=== PATIENT | male | born 1970 | race Caucasian/White ===

== ENCOUNTER 2016-07-02 13:28 | Outpatient (CLI) | payer MEDICAID | END 2016-07-02 13:29 | disposition home or self-care (01) | DX: E11.65 Type 2 diabetes mellitus with hyperglycemia (principal) ==

== ENCOUNTER 2016-10-07 11:46 | Outpatient (CLI) | payer MEDICAID | END 2016-10-07 11:47 | disposition home or self-care (01) | DX: E11.9 Type 2 diabetes mellitus without complications (principal); E66.9 Obesity, unspecified ==

== ENCOUNTER 2016-10-14 03:36 | Outpatient (CLI) | payer MEDICAID | END 2016-10-14 03:37 | disposition critical access hospital (66) | DX: R07.81 Pleurodynia (principal); R20.0 Anesthesia of skin | CPT/HCPCS: A0425; A0429 ==

== ENCOUNTER 2016-10-14 03:56 | Emergency (ER) | payer MEDICAID ==
[2016-10-14] MEDS ORDERED: ASPIRIN CHEW 81 MG TABLET PO STA (04:10)
== END 2016-10-14 06:23 | disposition home or self-care (01) ==
DX: R07.89 Other chest pain (principal); E11.9 Type 2 diabetes mellitus without complications; Z79.84 Long term (current) use of oral hypoglycemic drugs; I10 Essential (primary) hypertension; E78.00 Pure hypercholesterolemia, unspecified; F17.200 Nicotine dependence, unspecified, uncomplicated

== ENCOUNTER 2017-07-24 19:30 | Outpatient (CLI) | payer MEDICAID | END 2017-07-24 19:31 | disposition critical access hospital (66) | LOC: EMS 19:30 | PROVIDERS: ATTEND Surgery | DX: R53.1 Weakness (principal); R55 Syncope and collapse | CPT/HCPCS: A0425; A0427 ==

== ENCOUNTER 2017-07-24 19:50 | Emergency (ER) | payer MEDICAID ==
[2017-07-24 20:14] LABS: BASOPHILS % (AUTO) 0.7 %; EOSINOPHILS # (AUTO) 0.1 10^3/uL (0.0-0.7); EOSINOPHILS % (AUTO) 0.9 %; HGB - HEMOGLOBIN 17.6 g/dL (14.0-18.0); LYMPHOCYTES # (AUTO) 1.1 10^3/uL (1.5-3.5); LYMPHOCYTES % (AUTO) 17.2 %; MEAN CORPUSCULAR HEMOGLOBIN 30.1 pg (27.0-31.0); MEAN CORPUSCULAR HGB CONC 34.1 g/dL (32.0-36.0); MEAN CORPUSCULAR VOLUME 88.3 fL (80.0-94.0); MEAN PLATELET VOLUME 7.5 fL (7.4-11.4); MONOCYTES # (AUTO) 0.5 10^3/uL (0.0-1.0); MONOCYTES % (AUTO) 8.4 %; NEUTROPHILS # (AUTO) 4.5 10^3/uL (1.5-6.6); NEUTROPHILS % (AUTO) 72.8 %; PLT - PLATELET COUNT 210 10^3/uL (130-450); RED BLOOD COUNT 5.85 10^6/uL (4.70-6.10); RED CELL DISTRIBUTION WIDTH 13.7 % (12.0-15.0); WHITE BLOOD COUNT 6.2 x10^3/uL (4.8-10.8)
[2017-07-24 20:27] LABS: ALBUMIN 4.1 g/dL (3.2-5.5); ALBUMIN/GLOBULIN RATIO 1.4 (1.0-2.2); BILIRUBIN,TOTAL 0.7 mg/dL (0.2-1.0); CALCIUM 9.7 mg/dL (8.5-10.3); CREATININE 1.1 mg/dL (0.6-1.2)
--- NOTE | 2017-07-24 20:47 | ED Physician Documentation ---
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 He then experienced generalized weakness. He then became confused, thought he was getting ready for bed and thus he lay down on the floor. By his description, it sounds like there was then a brief loss of consciousness (no more than few minutes, but he is not certain). His brother had called 911 by this point. Medics found low blood pressure when they arrived (70's systolic), but improved en route and he presents to ED asymptomatic. Review of Systems Constitutional: reports: Sweats. denies: Fever, Chills Eyes: reports: Reviewed and negative Cardiac: reports: Reviewed and negative Respiratory: reports: Reviewed and negative GI: reports: Reviewed and negative Neurologic: reports: Generalized weakness, Syncope, LOC. denies: Focal weakness , Numbness, Headache PD PAST MEDICAL HISTORY - Past Medical History Cardiovascular: Hypertension, High cholesterol, Other Respiratory: None Endocrine/Autoimmune: Type 2 diabetes GI: Other : None HEENT: None Psych: Depression, Anxiety, Obsessive compulsive disorder Musculoskeletal: None Derm: None - Past Surgical History Past Surgical History: No General: Other - Present Medications Home Medications: Ambulatory Orders Medication Instructions Recorded Confirmed Metformin HCl 500 mg PO DAILY 08/31/13 07/24/17 - Allergies Allergies/Adverse Reactions: Allergies Allergy/AdvReac Type Severity Reaction Status Date / Time No Known Drug Allergies Allergy Verified 07/24/17 19:54 - Social History Does the pt smoke?: Yes Smoking Status: Current every day smoker Does the pt drink ETOH?: Yes Does the pt have substance abuse?: No - Immunizations Immunizations: TDAP >10years/unknown - POLST Patient has POLST: No PD ED PE NORMAL - Vitals Vital signs reviewed: Yes - General General: Alert and oriented X 3, No acute distress, Well developed/nourished - HEENT HEENT: PERRL, EOMI, Moist mucous membranes - Neck Neck: Supple, no meningeal sign - Cardiac Cardiac: RRR, No murmur, No gallop, No rub - Respiratory Respiratory: No respiratory distress, Clear bilaterally - Abdomen Abdomen: Soft, Non tender - Derm Derm: Normal color, Warm and dry - Extremities Extremities: No edema - Neuro Neuro: Alert and oriented X 3, 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, No motor deficit, No sensory deficit, Normal speech Eye Opening: Spontaneous Motor: Obeys Commands Verbal: Oriented GCS Score: 15 Results - Vitals Vitals: Vital Signs - 24 hr 07/24/17 07/24/17 19:51 21:15 Temperature 35.7 C L 36.3 C L Heart Rate 60 71 Respiratory 16 20 Rate Blood Pressure 118/78 129/70 O2 Saturation 94 98 Oxygen O2 Source Room air - EKG (time done) No standard instances Rate: Rate (enter#) (68) Rhythm: NSR [place]: Normal Intervals: Normal [place] QRS: Normal Ischemia: Normal ST segments Computer interpretation: Disagree with computer (No ST elevation ) - Labs Labs: Laboratory Tests 07/24/17 07/24/17 20:05 20:05 WBC 6.2 RBC 5.85 Hgb 17.6 Hct 51.6 MCV 88.3 MCH 30.1 MCHC 34.1 RDW 13.7 Plt Count 210 MPV 7.5 Neut # 4.5 Lymph # 1.1 L [place] # 0.5 Eos # 0.1 Baso # 0.0 Absolute Nucleated RBC 0.00 Nucleated RBC % 0.1 Sodium 137 Potassium 4.1 Chloride 104 Carbon Dioxide 20 L Anion Gap 13.0 BUN 21 H Creatinine 1.1 Estimated GFR (MDRD) 71 L Glucose 131 H Calcium 9.7 Total Bilirubin 0.7 AST 24 ALT 45 Alkaline Phosphatase 109 Total Protein 7.0 Albumin 4.1 Globulin 2.9 Albumin/Globulin Ratio 1.4 Lipase 25 PD MEDICAL DECISION MAKING - ED course Complexity details: reviewed results, re-evaluated patient, considered differential, d/w patient Departure - Departure Disposition: Home, Self Care Clinical Impression: Syncope Condition: Good Instructions: ED Fainting Unkn Cause Follow-Up: Denilson Ryan MD [Primary Care Provider] - Discharge Date/Time: 07/24/17 21:20
[2017-07-24 21:21] VITALS: BP 129/70
== END 2017-07-24 21:20 | disposition home or self-care (01) ==
LOC: EDUNIT# → EDBD → ED 19:50
DX: R55 Syncope and collapse (principal); I10 Essential (primary) hypertension; E78.00 Pure hypercholesterolemia, unspecified; E11.9 Type 2 diabetes mellitus without complications; Z79.84 Long term (current) use of oral hypoglycemic drugs; F17.200 Nicotine dependence, unspecified, uncomplicated
CPT/HCPCS: 36415; 80053; 83690; 85025; 93005; 99284

== ENCOUNTER 2017-07-31 08:00 | Outpatient (CLI) | payer MEDICAID ==
[2017-07-31 19:24] LABS: CALCIUM 9.9 mg/dL (8.5-10.3); CREATININE 0.8 mg/dL (0.6-1.2)
[2017-07-31 19:44] LABS: HB2 TOTAL 20.2 g/dL; HEMOGLOBIN A1C 0.93 g/dL; HEMOGLOBIN A1C % 6.4 % (4.6-6.2)
== END 2017-07-31 08:01 ==
LOC: LAB.N 08:00
PROVIDERS: ATTEND Family Medicine
DX: E11.9 Type 2 diabetes mellitus without complications (principal)
CPT/HCPCS: 36415; 80048; 83036

== ENCOUNTER 2017-07-31 14:30 | Outpatient (CLI) | payer MEDICAID | END 2017-07-31 14:45 | disposition home or self-care (01) | LOC: RT.N 14:30 | PROVIDERS: ATTEND Family Medicine | DX: I95.9 Hypotension, unspecified (principal) | CPT/HCPCS: 93005 ==

== ENCOUNTER 2017-11-26 08:00 | Outpatient (CLI) | payer MEDICAID ==
[2017-11-26 18:58] LABS: BASOPHILS % (AUTO) 0.8 %; EOSINOPHILS # (AUTO) 0.1 10^3/uL (0.0-0.7); HGB - HEMOGLOBIN 15.9 g/dL (14.0-18.0); LYMPHOCYTES # (AUTO) 1.2 10^3/uL (1.5-3.5); LYMPHOCYTES % (AUTO) 20.1 %; MEAN CORPUSCULAR HGB CONC 33.6 g/dL (32.0-36.0); MEAN CORPUSCULAR VOLUME 92.3 fL (80.0-94.0); MEAN PLATELET VOLUME 8.4 fL (7.4-11.4); MONOCYTES # (AUTO) 0.5 10^3/uL (0.0-1.0); MONOCYTES % (AUTO) 8.5 %; NEUTROPHILS # (AUTO) 4.1 10^3/uL (1.5-6.6); NEUTROPHILS % (AUTO) 69.6 %; PLT - PLATELET COUNT 200 10^3/uL (130-450); RED BLOOD COUNT 5.12 10^6/uL (4.70-6.10); RED CELL DISTRIBUTION WIDTH 13.9 % (12.0-15.0); WHITE BLOOD COUNT 5.9 x10^3/uL (4.8-10.8)
[2017-11-26 19:07] LABS: HEMOGLOBIN A1C 0.97 g/dL; HEMOGLOBIN A1C % 7.1 % (4.6-6.2)
[2017-11-26 19:21] LABS: ALBUMIN 4.3 g/dL (3.2-5.5); ALBUMIN/GLOBULIN RATIO 1.6 (1.0-2.2); ALKALINE PHOSPHATASE 100 IU/L (42-121); ALT ALANINE AMINOTRANSFERASE 48 IU/L (10-60); AST ASPARTATE AMINOTRANSFERASE 25 IU/L (10-42); BILIRUBIN,TOTAL 0.7 mg/dL (0.2-1.0); BUN - BLOOD UREA NITROGEN 11 mg/dL (6-20); CALCIUM 9.4 mg/dL (8.5-10.3); CARBON DIOXIDE - CO2 25 mmol/L (21-32); CHLORIDE 108 mmol/L (101-111); CHOL/HDL RATIO 6.1 (<5.0); CHOLESTEROL 237 mg/dL; CREATININE 0.8 mg/dL (0.6-1.2); GFR - MDRD 103 (>89); GLUCOSE 129 mg/dL (70-100); HDL CHOLESTEROL 39 mg/dL; LDL CHOLESTEROL,CALCULATED 174 mg/dL; LDL/HDL RATIO 4.5 (<3.6); SODIUM 138 mmol/L (135-145); VLDL CHOLESTEROL 24 mg/dL
== END 2017-11-26 08:01 ==
LOC: LAB.N 08:00
PROVIDERS: ATTEND Family Medicine
DX: E11.9 Type 2 diabetes mellitus without complications (principal); I10 Essential (primary) hypertension; E78.5 Hyperlipidemia, unspecified; E66.9 Obesity, unspecified
CPT/HCPCS: 36415; 80053; 80061; 83036; 83721; 85025

== ENCOUNTER 2018-04-15 10:22 | Outpatient (CLI) | payer MEDICAID ==
[2018-04-15 13:15] LABS: CALCIUM 9.5 mg/dL (8.5-10.3); CREATININE 0.8 mg/dL (0.6-1.2)
[2018-04-15 13:46] LABS: HB2 TOTAL 18.2 g/dL; HEMOGLOBIN A1C 0.94 g/dL; HEMOGLOBIN A1C % 6.9 % (4.6-6.2)
== END 2018-04-15 10:23 | disposition home or self-care (01) ==
LOC: LAB.N 10:22
PROVIDERS: ATTEND Family Medicine
DX: E11.9 Type 2 diabetes mellitus without complications (principal)
CPT/HCPCS: 36415; 80048; 83036

== ENCOUNTER 2018-07-21 09:50 | Outpatient (CLI) | payer MEDICAID ==
[2018-07-21 12:34] LABS: CALCIUM 9.5 mg/dL (8.5-10.3); CREATININE 0.7 mg/dL (0.6-1.2)
[2018-07-21 12:46] LABS: HB2 TOTAL 19.3 g/dL; HEMOGLOBIN A1C 1.02 g/dL
== END 2018-07-21 23:59 | disposition home or self-care (01) ==
LOC: LAB.N 09:50
PROVIDERS: ATTEND Physician Assistant Medical
DX: E11.9 Type 2 diabetes mellitus without complications (principal)
CPT/HCPCS: 36415; 80048; 83036

== ENCOUNTER 2018-10-19 08:00 | Outpatient (CLI) | payer MEDICAID ==
[2018-10-19 14:08] LABS: ALBUMIN 4.2 g/dL (3.2-5.5); ALBUMIN/GLOBULIN RATIO 1.6 (1.0-2.2); ALKALINE PHOSPHATASE 99 IU/L (42-121); ALT ALANINE AMINOTRANSFERASE 34 IU/L (10-60); AST ASPARTATE AMINOTRANSFERASE 18 IU/L (10-42); BILIRUBIN,TOTAL 0.9 mg/dL (0.2-1.0); BUN - BLOOD UREA NITROGEN 16 mg/dL (6-20); CALCIUM 9.5 mg/dL (8.5-10.3); CARBON DIOXIDE - CO2 22 mmol/L (21-32); CHLORIDE 106 mmol/L (101-111); CHOL/HDL RATIO 6.8 (<5.0); CHOLESTEROL 293 mg/dL; CREATININE 0.7 mg/dL (0.6-1.2); GFR - MDRD 119 (>89); GLUCOSE 211 mg/dL (70-100); HDL CHOLESTEROL 43 mg/dL; LDL CHOLESTEROL,CALCULATED 222 mg/dL; LDL/HDL RATIO 5.2 (<3.6); SODIUM 135 mmol/L (135-145); TOTAL PROTEIN 6.9 g/dL (6.7-8.2); VLDL CHOLESTEROL 28 mg/dL
[2018-10-19 14:58] LABS: HB2 TOTAL 17.6 g/dL; HEMOGLOBIN A1C 1.1 g/dL; HEMOGLOBIN A1C % 7.9 % (4.6-6.2)
[2018-10-19 20:06] LABS: CREATININE,URINE 136.6 mg/dL; MICROALBUM/CREATININE RATIO,UR 105.4 ug/mg (<30.0); MICROALBUMIN,URINE 14.4 mg/dL (0-300.0)
== END 2018-10-19 23:59 | disposition home or self-care (01) ==
LOC: LAB.N 08:00
DX: E11.9 Type 2 diabetes mellitus without complications (principal)
CPT/HCPCS: 36415; 80053; 80061; 82043; 82570; 83036; 83721

== ENCOUNTER 2018-12-14 11:04 | Emergency (ER) | payer MEDICAID ==
--- NOTE | 2018-12-14 12:41 | XRAY Report ---
Reason: jammed Procedure Date: 12/14/2018 Accession Number: [id number] / [id number] Procedure: XR - Toe(s) LT CPT Code: FULL RESULT: EXAM: LEFT FIFTH TOE RADIOGRAPHY EXAM DATE: 12/14/2018 12:21 PM. CLINICAL HISTORY: Jammed toe; complains of pain and swelling. COMPARISON: None. TECHNIQUE: 4 views. FINDINGS: Bones: Normal. No fracture or bone lesion. Joints: Normal. No subluxations. Soft Tissues: No soft tissue gas or radiopaque foreign body is seen. IMPRESSION: No definite fracture is detected. RADIA
--- NOTE | 2018-12-14 14:10 | ED Physician Documentation ---
PD HPI LOWER EXT INJURY - Stated complaint Stated Complaint: TOE INJ - Chief complaint Chief Complaint: Ext Problem - History obtained from History obtained from: Patient - History of Present Illness PD HPI LOW EXT INJURY LOCATION: Left, Toe (5th toe) Type of injury: Blunt / blow (struck toe last night and is concerned about fracture.) Where injury occurred: Home Timing - onset: Last night Timing - details: Abrupt onset, Still present Worsened by: Moving, Palpating Associated symptoms: Swelling, Other (also having burning and tenderness of skin on bottom of feet for weeks). No: Weakness, Numbness Similar symptoms before: Has not had sx before Recently seen: Not recently seen Review of Systems Constitutional: denies: Fever, Chills Skin: denies: Abrasion (s), Laceration (s) Neurologic: reports: Numbness (has ongoing numbness bottom of feet). denies: Focal weakness PD PAST MEDICAL HISTORY - Past Medical History Cardiovascular: Hypertension, High cholesterol, Other Respiratory: None Endocrine/Autoimmune: Type 2 diabetes GI: Other : None HEENT: None Psych: Depression, Anxiety, Obsessive compulsive disorder Musculoskeletal: None Derm: None - Past Surgical History Past Surgical History: No General: Other - Present Medications Home Medications: Ambulatory Orders Medication Instructions Recorded Confirmed Metformin HCl 500 mg PO DAILY 08/31/13 07/24/17 Mupirocin 1 applic TP TID #15 g 12/14/18 Nystatin Cream [Mycostatin Cream] 1 applic TOP DAILY #30 g 12/14/18 - Allergies Allergies/Adverse Reactions: Allergies Allergy/AdvReac Type Severity Reaction Status Date / Time No Known Drug Allergies Allergy Verified 12/14/18 11:34 - Social History Does the pt smoke?: Yes Smoking Status: Current every day smoker Does the pt drink ETOH?: Yes Does the pt have substance abuse?: No - Immunizations Immunizations: TDAP >10years/unknown - POLST Patient has POLST: No PD ED PE NORMAL - Vitals Vital signs reviewed: Yes - General General: Alert and oriented X 3, No acute distress, Well developed/nourished - Derm Derm: Normal color, Warm and dry, Other (feet has redness with mild inflammation on bottoms of feet and between toes. No erosions. 5th toe left is tender without deformity. Slight pull up of nail. ) Results - Vitals Vitals: Oxygen O2 Source Room air PD MEDICAL DECISION MAKING - ED course Complexity details: considered differential (main issue is toe contusion without fracture. ALso noted is some tinea pedis. ), d/w patient Departure - Departure Disposition: 01 Home, Self Care Clinical Impression: Toe contusion Qualifiers: Encounter type: initial encounter Toe: lesser toe Damage to nail status: with damage Laterality: left Qualified Code(s): S90.222A - Contusion of left lesser toe(s) with damage to nail, initial encounter Tinea pedis Qualifiers: Laterality: bilateral Qualified Code(s): B35.3 - Tinea pedis Clinical Impression: (Ruled Out): Toe fracture Condition: Stable Record reviewed to determine appropriate education?: Yes Follow-Up: Denilson Ryan MD [Primary Care Provider] - Prescriptions: Mupirocin 1 applic TP TID #15 g Nystatin Cream [Mycostatin Cream] 1 applic TOP DAILY #30 g Comments: Your toe is not broken on x-ray. You clean the toenail injury daily with soap and water and apply mupirocin antibiotic ointment to reduce the chance of infection. Recheck if signs of infection develop there. Will be likely swollen for a few days and should improve. You can use antifungal nystatin and cream on the foot rash which looks like athlete's foot. Discharge Date/Time: 12/14/18 14:34
[2018-12-14 14:34] VITALS: BP 149/89
== END 2018-12-14 14:34 | disposition home or self-care (01) ==
LOC: ED 11:04
DX: S90.222A Contusion of left lesser toe(s) with damage to nail, initial encounter (principal); W22.03XA Walked into furniture, initial encounter; Y92.009 Unspecified place in unspecified non-institutional (private) residence as the place of occurrence of the external cause; B35.3 Tinea pedis; E11.9 Type 2 diabetes mellitus without complications; Z79.84 Long term (current) use of oral hypoglycemic drugs; I10 Essential (primary) hypertension; F17.200 Nicotine dependence, unspecified, uncomplicated
CPT/HCPCS: 73660; 99283

== ENCOUNTER 2019-03-26 12:25 | Outpatient (CLI) | payer MEDICAID ==
[2019-03-26 19:14] LABS: CREATININE 0.8 mg/dL (0.6-1.2)
[2019-03-26 19:38] LABS: HB2 TOTAL 17.1 g/dL; HEMOGLOBIN A1C 1.65 g/dL
== END 2019-03-26 23:59 | disposition home or self-care (01) ==
LOC: LAB.N 12:25
PROVIDERS: ATTEND Physician Assistant Medical
DX: E11.9 Type 2 diabetes mellitus without complications (principal); E78.5 Hyperlipidemia, unspecified; I10 Essential (primary) hypertension; F17.200 Nicotine dependence, unspecified, uncomplicated; E66.9 Obesity, unspecified
CPT/HCPCS: 36415; 80048; 83036

== ENCOUNTER 2019-05-12 10:03 | Emergency (ER) | payer MEDICAID ==
[2019-05-12 10:13] VITALS: BP 167/88
--- NOTE | 2019-05-12 11:47 | ED Physician Documentation ---
PD HPI UPPER EXT INJURY - Stated complaint Stated Complaint: HAND PX - Chief complaint Chief Complaint: Ext Problem - History obtained from History obtained from: Patient - History of Present Illness Location: Right, Other (thumb) Type of injury: Other (none) Where injury occurred: Home Timing - onset: How many weeks ago (1) Timing - duration: Weeks (1) Timing - details: Gradual onset, Intermittant Severity Comments: mild, sometimes moderate Improved by: Rest Worsened by: Moving Associated symptoms: No: Weakness, Numbness, Tingling, Swelling, Discolored Contributing factors: No: Anticoagulated, Prior ortho surgery, Work related Similar symptoms before: Has not had sx before Recently seen: Not recently seen - Treatment prior to arrival Treatment prior to arrival: none - Additonal information Additional information: Sometimes it hurts when he picks something up Review of Systems Ten Systems: 10 systems reviewed and negative Constitutional: denies: Fever Cardiac: reports: Reviewed and negative Respiratory: reports: Reviewed and negative GI: reports: Reviewed and negative Skin: reports: Reviewed and negative. denies: Rash Musculoskeletal: reports: Joint pain, Reviewed and negative. denies: Extremity swelling, Joint swelling Neurologic: denies: Generalized weakness, Focal weakness, Numbness Immunocompromised: reports: Reviewed and negative PD PAST MEDICAL HISTORY - Past Medical History Past Medical History: Yes Cardiovascular: Hypertension, High cholesterol, Other Respiratory: None Endocrine/Autoimmune: Type 2 diabetes GI: Other : None HEENT: None Psych: Depression, Anxiety, Obsessive compulsive disorder Musculoskeletal: None Derm: None - Past Surgical History Past Surgical History: No General: Other - Present Medications Home Medications: Ambulatory Orders Medication Instructions Recorded Confirmed Metformin HCl 500 mg PO DAILY 08/31/13 07/24/17 Mupirocin 1 applic TP TID #15 g 12/14/18 Nystatin Cream [Mycostatin Cream] 1 applic TOP DAILY #30 g 12/14/18 - Allergies Allergies/Adverse Reactions: Allergies Allergy/AdvReac Type Severity Reaction Status Date / Time No Known Drug Allergies Allergy Verified 05/12/19 10:13 - Social History Does the pt smoke?: Yes Smoking Status: Current every day smoker Does the pt drink ETOH?: Yes Does the pt have substance abuse?: No - Immunizations Immunizations: TDAP >10years/unknown - POLST Patient has POLST: No PD ED PE NORMAL - Vitals Vital signs reviewed: Yes - General General: Alert and oriented X 3, No acute distress, Well developed/nourished - HEENT HEENT: Atraumatic - Neck Neck: Supple, no meningeal sign - Cardiac Cardiac: RRR - Respiratory Respiratory: No respiratory distress - Abdomen Abdomen: Soft, Non distended - Male Male : Deferred - Rectal Rectal: Deferred - Derm Derm: Normal color, Warm and dry, No rash - Neuro Neuro: Alert and oriented X 3 Eye Opening: Spontaneous Motor: Obeys Commands Verbal: Oriented GCS Score: 15 - Psych Psych: Normal mood, Normal affect PD ED PE EXPANDED - Extremities Extremities: Right finger(s) (thumb, normal appearance, no swelling, no deformity, no tenderness, no redness, full ROM ) Results - Vitals Vitals: Vital Signs - 24 hr 05/12/19 10:11 Temperature 36.6 C Heart Rate 95 Respiratory 20 Rate Blood Pressure 167/88 H O2 Saturation 96 Oxygen O2 Source Room air PD MEDICAL DECISION MAKING - ED course Complexity details: considered differential, d/w patient ED course: ddx- thumb sprain, arthritis, gout 49 y/o M with thumb pain for a week, denies hx of trauma but does wash dishes and do chores around the house. Pain is intermittent. Currently states he has almost no pain but he didn't want to wait a week to see his PCP. Did not take any meds for it. Exam is completely normal as documented. 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 Advised trial of NSAIDs and outpt f/u
== END 2019-05-12 12:04 | disposition home or self-care (01) ==
LOC: ED 10:03
DX: S63.601A Unspecified sprain of right thumb, initial encounter (principal); X58.XXXA Exposure to other specified factors, initial encounter; I10 Essential (primary) hypertension; E11.9 Type 2 diabetes mellitus without complications; Z79.84 Long term (current) use of oral hypoglycemic drugs; F17.200 Nicotine dependence, unspecified, uncomplicated
CPT/HCPCS: 99281; 99282

== ENCOUNTER 2019-09-12 19:02 | Outpatient (CLI) | payer MEDICAID | END 2019-09-12 19:03 | disposition EMS.NT | LOC: EMS 19:02 | PROVIDERS: ATTEND Surgery | DX: R73.09 Other abnormal glucose (principal) ==

== ENCOUNTER → 2020-04-28 | Outpatient (CLI) | payer MEDICAID ==
[2020-04-28 18:34] LABS: ALBUMIN 4.4 g/dL (3.2-5.5); ALBUMIN/GLOBULIN RATIO 1.5 (1.0-2.2); ALKALINE PHOSPHATASE 113 IU/L (42-121); ALT ALANINE AMINOTRANSFERASE 42 IU/L (10-60); AST ASPARTATE AMINOTRANSFERASE 19 IU/L (10-42); BILIRUBIN,TOTAL 0.5 mg/dL (0.2-1.0); BUN - BLOOD UREA NITROGEN 9 mg/dL (6-20); CALCIUM 9.7 mg/dL (8.5-10.3); CARBON DIOXIDE - CO2 22 mmol/L (21-32); CHLORIDE 101 mmol/L (101-111); CHOL/HDL RATIO 7.2 (<5.0); CHOLESTEROL 273 mg/dL; CREATININE 0.7 mg/dL (0.6-1.2); GLUCOSE 221 mg/dL (70-100); HDL CHOLESTEROL 38 mg/dL; LDL CHOLESTEROL,CALCULATED 196 mg/dL; LDL/HDL RATIO 5.2 (<3.6); SODIUM 134 mmol/L (135-145); TOTAL PROTEIN 7.3 g/dL (6.7-8.2); VLDL CHOLESTEROL 39 mg/dL
[2020-04-28 19:40] LABS: CREATININE,URINE 223.1 mg/dL; MICROALBUM/CREATININE RATIO,UR 454.5 ug/mg (<30.0); MICROALBUMIN,URINE 101.4 mg/dL (0-300.0)
== END ==
LOC: LAB.WCP 08:00
PROVIDERS: ATTEND Internal Medicine
DX: E11.65 Type 2 diabetes mellitus with hyperglycemia (principal); E78.2 Mixed hyperlipidemia
CPT/HCPCS: 36415; 80053; 80061; 82043; 82570; 83036; 83721; 84443

== ENCOUNTER 2020-05-25 19:57 | Emergency (ER) | payer MEDICAID ==
[2020-05-25] MEDS ORDERED: SODIUM CHLORIDE 0.9% 1,000 ML IV STA (20:06)
[2020-05-25 20:22] LABS: BILIRUBIN,URINE NEGATIVE (NEGATIVE); GLUCOSE, URINE (UA) >=1000 mg/dL (NEGATIVE); KETONES,URINE (UA) TRACE mg/dL (NEGATIVE); LEUKOCYTE ESTERASE, URINE NEGATIVE (NEGATIVE); NITRITE,URINE NEGATIVE (NEGATIVE); OCCULT BLOOD,URINE SMALL (NEGATIVE); PH,URINE 5.5 PH (5.0-7.5); PROTEIN,URINE 30 mg/dL (NEGATIVE); UROBILINOGEN,URINE 0.2 (NORMAL) E.U./dL (NORMAL)
[2020-05-25 20:25] LABS: CLARITY,URINE CLEAR (CLEAR)
[2020-05-25 20:27] LABS: BASOPHILS # (AUTO) 0.1 10^3/uL (0.0-0.1); BASOPHILS % (AUTO) 0.7 %; EOSINOPHILS % (AUTO) 0.3 %; HGB - HEMOGLOBIN 17.7 g/dL (14.0-18.0); LYMPHOCYTES % (AUTO) 10.8 %; MEAN CORPUSCULAR HEMOGLOBIN 30.9 pg (27.0-31.0); MEAN CORPUSCULAR HGB CONC 34.4 g/dL (32.0-36.0); MEAN CORPUSCULAR VOLUME 89.7 fL (80.0-94.0); MONOCYTES # (AUTO) 0.6 10^3/uL (0.0-1.0); NEUTROPHILS # (AUTO) 7.3 10^3/uL (1.5-6.6); NEUTROPHILS % (AUTO) 80.8 %; PLT - PLATELET COUNT 271 10^3/uL (130-450); RED BLOOD COUNT 5.73 10^6/uL (4.70-6.10); RED CELL DISTRIBUTION WIDTH 12.4 % (12.0-15.0)
--- NOTE | 2020-05-25 20:30 | ED Physician Documentation ---
History of Present Illness - Stated complaint Stated Complaint: HIGH BLOOD SUGAR - Chief complaint Chief Complaint: General - History obtained from History obtained from: Patient - History of Present Illness Timing: Prior to arrival - Additonal information Additional information: 50-year-old diabetic male presents to the emergency department for evaluation of elevated blood glucose.This evening his blood glucose got up to 374 mg/dL. This is higher than normal for him. He does admit to eating a Thanksgiving dinner. However he also admits that he is not compliant with his diabetes medications. He denies fevers nausea or vomiting. He has no headache abdominal pain or dysuria. Meds Lantus 50 units every afternoon, metformin 500 mg twice daily, Victoza daily, lisinopril, daily statin Social: Daily tobacco A continuous glucose monitor and Review of Systems Constitutional: denies: Fever, Chills Eyes: denies: Loss of vision, Decreased vision Ears: reports: Reviewed and negative Nose: reports: Reviewed and negative Throat: reports: Reviewed and negative Cardiac: denies: Chest pain / pressure, Palpitations, Pedal edema Respiratory: denies: Dyspnea, Cough, Hemoptysis, Wheezing GI: denies: Abdominal Pain, Nausea, Vomiting : denies: Dysuria, Frequency Skin: reports: Reviewed and negative Musculoskeletal: reports: Reviewed and negative PD PAST MEDICAL HISTORY - Past Medical History Cardiovascular: Hypertension, High cholesterol, Other Respiratory: None Endocrine/Autoimmune: Type 2 diabetes GI: Other : None HEENT: None Psych: Depression, Anxiety, Obsessive compulsive disorder Musculoskeletal: None Derm: None - Past Surgical History Past Surgical History: No General: Other - Present Medications Home Medications: Ambulatory Orders Medication Instructions Recorded Confirmed Metformin HCl 1,000 mg PO BID 08/31/13 07/24/17 Insulin Glargine [Lantus Solostar] 50 units SQ DAILY 05/25/20 05/25/20 Liraglutide [Victoza 2-Nikita] 1.8 mg SQ DAILY 05/25/20 05/25/20 Lisinopril [Zestril] 20 PO DAILY 05/25/20 Rosuvastatin Calcium [Crestor] 40 mg PO DAILY 05/25/20 05/25/20 - Allergies Allergies/Adverse Reactions: Allergies Allergy/AdvReac Type Severity Reaction Status Date / Time No Known Drug Allergies Allergy Verified 05/25/20 20:00 - Social History Does the pt smoke?: Yes Smoking Status: Current every day smoker Does the pt drink ETOH?: Yes Does the pt have substance abuse?: No - Immunizations Immunizations: TDAP >10years/unknown - POLST Patient has POLST: No PD ED PE EXPANDED - General General: Alert, No acute distress, Disheveled, poorly kept - HEENT HEENT: Atraumatic, PERRL - Neck Neck: Supple w/out meningeal sx, No tenderness - Cardiac Cardiac: Regular Rate, Regular Rhythm, Radial strong equal, Pedal strong equal, Cap refill < 2 sec - Respiratory Respiratory: Clear to ausultation selin. No: Distress, Labored - Abdomen Abdomen: Normal Bowel sounds. No: Tender to palpation - Derm Derm: Normal color. No: Rash - Neuro Neuro: Alert and Oriented X 3, CNII-XII intact - GCS Eye Opening: Spontaneous Motor: Obeys Commands Verbal: Oriented Total: 15 Results - Vitals Vitals: Vital Signs - 24 hr 05/25/20 20:00 Temperature 36.5 C Heart Rate 94 Respiratory 16 Rate Blood Pressure 180/80 H O2 Saturation 96 Oxygen O2 Source Room air - Labs Labs: Laboratory Tests 05/25/20 05/25/20 05/25/20 20:06 20:12 20:20 WBC 9.0 RBC 5.73 Hgb 17.7 Hct 51.4 MCV 89.7 MCH 30.9 MCHC 34.4 RDW 12.4 Plt Count 271 MPV 10.0 Neut # (Auto) 7.3 H Lymph # (Auto) 1.0 L [place] # (Auto) 0.6 Eos # (Auto) 0.0 Baso # (Auto) 0.1 Absolute Nucleated RBC 0.00 Nucleated RBC % 0.0 Sodium Potassium Chloride Carbon Dioxide Anion Gap BUN Creatinine Estimated GFR (MDRD) Glucose POC Whole Bld Glucose 310 H Calcium Total Bilirubin AST ALT Alkaline Phosphatase Total Protein Albumin Globulin Albumin/Globulin Ratio Lipase Urine Color YELLOW Urine Clarity CLEAR Urine pH 5.5 Ur Specific [place] 1.020 Urine Protein 30 H Urine Glucose (UA) >=1000 H Urine Ketones TRACE Urine Occult Blood SMALL H Urine Nitrite NEGATIVE Urine Bilirubin NEGATIVE Urine Urobilinogen 0.2 (NORMAL) Ur Leukocyte Esterase NEGATIVE Urine RBC 0-5 Urine WBC 0-3 Ur Squamous Epith Cells NONE SEEN Urine Bacteria Rare Ur Microscopic Review INDICATED Urine Culture Comments NOT INDICATED Serum Ketones 05/25/20 05/25/20 20:20 20:29 WBC RBC Hgb Hct MCV MCH MCHC RDW Plt Count MPV Neut # (Auto) Lymph # (Auto) [place] # (Auto) Eos # (Auto) Baso # (Auto) Absolute Nucleated RBC Nucleated RBC % Sodium 132 L Potassium 4.5 Chloride 102 Carbon Dioxide 20 L Anion Gap 10.0 BUN 15 Creatinine 0.9 Estimated GFR (MDRD) 89 Glucose 360 H POC Whole Bld Glucose 343 H Calcium 10.2 Total Bilirubin 0.8 AST 19 ALT 30 Alkaline Phosphatase 105 Total Protein 7.7 Albumin 4.7 Globulin 3.0 Albumin/Globulin Ratio 1.6 Lipase 36 Urine Color Urine Clarity Urine pH Ur Specific [place] Urine Protein Urine Glucose (UA) Urine Ketones Urine Occult Blood Urine Nitrite Urine Bilirubin Urine Urobilinogen Ur Leukocyte Esterase Urine RBC Urine WBC Ur Squamous Epith Cells Urine Bacteria Ur Microscopic Review Urine Culture Comments Serum Ketones NEGATIVE PD MEDICAL DECISION MAKING - ED course Complexity details: reviewed results, re-evaluated patient, considered differential, d/w patient ED course: 50-year-old male with a history of diabetes but medication noncompliance presents to the emergency department with blood glucose of greater than 360 at home. He admits that he has not properly been taking his Lantus Metformin nor his Victoza. Today on labs he does not have evidence of DKA. Serum ketones are negative. He is not tachypneic or febrile. Here in the emergency department he was given 1 L of IV fluids as well as 5 units of insulin. His blood glucose is now approximately 220. He has remained alert and hemodynamically stable without headaches or vomiting. I did spend time at the bedside discussing with him the importance of medication compliance. At this time he is stable for discharge home. Advise close follow-up with his primary care provider. Emergent return precautions were discussed. Departure - Departure Disposition: Home, Self Care Clinical Impression: Poorly controlled diabetes mellitus, Nonadherence to medication, Blood glucose abnormal Condition: Stable Record reviewed to determine appropriate education?: Yes Instructions: ED Hyperglycemia Diabetic, ED Diabetes General Info Comments: [place] as a diabetic it is very important that you always take your medications as prescribed. Poorly controlled diabetes can lead to heart attacks, strokes kidney failure or even early . In the long-term it will be important for you to also stop smoking. Today your labs were evaluated. Your initial blood glucose was greater than 360. We did give you 1 L of IV fluids as well as 5 units of regular insulin. Your blood sugar is now about 220. You are not in DKA. The rest of your labs and electrolytes were otherwise reassuring. If at any point you find you have blood sugars greater than 400, uncontrolled vomiting, high fevers, chest pain or difficulty breathing please return immediately to the ER. Please discuss this ED visit with your primary care provider and schedule an appointment as soon as possible
[2020-05-25 20:33] LABS: KETONES, SERUM (ACETEST) NEGATIVE (NEGATIVE)
[2020-05-25 20:39] LABS: ALBUMIN 4.7 g/dL (3.2-5.5); ALBUMIN/GLOBULIN RATIO 1.6 (1.0-2.2); ALKALINE PHOSPHATASE 105 IU/L (42-121); ALT ALANINE AMINOTRANSFERASE 30 IU/L (10-60); AST ASPARTATE AMINOTRANSFERASE 19 IU/L (10-42); BILIRUBIN,TOTAL 0.8 mg/dL (0.2-1.0); BUN - BLOOD UREA NITROGEN 15 mg/dL (6-20); CALCIUM 10.2 mg/dL (8.5-10.3); CARBON DIOXIDE - CO2 20 mmol/L (21-32); CHLORIDE 102 mmol/L (101-111); CREATININE 0.9 mg/dL (0.6-1.2); GLUCOSE 360 mg/dL (70-100); LIPASE 36 U/L (22-51); SODIUM 132 mmol/L (135-145); TOTAL PROTEIN 7.7 g/dL (6.7-8.2)
[2020-05-25 20:45] LABS: BACTERIA,URINE Rare /HPF (None Seen); RBC,URINE 0-5 /HPF (0-5); SQUAMOUS EPITHELIAL CELL,UR NONE SEEN (<= Few)
[2020-05-25] MEDS ORDERED: INSULIN REGULAR HUMAN 100 UNIT/1 ML 10 ML MDV IVP STA (20:54)
[2020-05-25 21:53] VITALS: BP 143/80
== END 2020-05-25 21:53 | disposition home or self-care (01) ==
LOC: ED 19:57
DX: E11.65 Type 2 diabetes mellitus with hyperglycemia (principal); I10 Essential (primary) hypertension; F17.200 Nicotine dependence, unspecified, uncomplicated; Z79.899 Other long term (current) drug therapy; Z79.4 Long term (current) use of insulin
CPT/HCPCS: 36415; 80053; 81001; 82009; 83690; 85025; 96360; 99283; J1815; 81003; 87086

== ENCOUNTER 2020-07-02 08:42 | Emergency (ER) | payer MEDICAID ==
[2020-07-02] MEDS ORDERED: BUFFERED LIDOCAINE 10 ML SYRINGE SUBQ STA (09:45)
[2020-07-02] MEDS ORDERED: BACITRACIN ZINC OINT 1 PACKET TOP STA (10:12)
--- NOTE | 2020-07-02 10:15 | ED Physician Documentation ---
PD HPI SKIN - Stated complaint Stated Complaint: NECK PX - Chief complaint Chief Complaint: Wound - History obtained from History obtained from: Patient - Additional information Additional information: 50-year-old man with history of diabetes presents with left neck abscess for the past week. He has noticed some mild drainage. No pain with neck movement, no airway involvement. No fevers. He does have an appointment with his primary doctor on Friday to have it looked at. Pain is mild, worse with pressing on it, nonradiating, associated with swelling. Review of Systems Skin: reports: Other (Left neck abscess) PD PAST MEDICAL HISTORY - Past Medical History Cardiovascular: Hypertension, High cholesterol, Other Respiratory: None Endocrine/Autoimmune: Type 2 diabetes GI: Other : None HEENT: None Psych: Depression, Anxiety, Obsessive compulsive disorder Musculoskeletal: None Derm: None - Past Surgical History Past Surgical History: No General: Other - Present Medications Home Medications: Ambulatory Orders Medication Instructions Recorded Confirmed Metformin HCl 1,000 mg PO BID 08/31/13 07/02/20 Insulin Glargine [Lantus Solostar] 50 units SQ DAILY 05/25/20 07/02/20 Liraglutide [Victoza 2-Nikita] 1.8 mg SQ DAILY 05/25/20 07/02/20 Lisinopril [Zestril] 20 mg PO DAILY 05/25/20 07/02/20 Rosuvastatin Calcium [Crestor] 40 mg PO DAILY 05/25/20 07/02/20 Clindamycin [Cleocin] 300 mg PO Q6H 7 Days #42 capsule 07/02/20 - Allergies Allergies/Adverse Reactions: Allergies Allergy/AdvReac Type Severity Reaction Status Date / Time No Known Drug Allergies Allergy Verified 07/02/20 08:50 - Social History Does the pt smoke?: Yes Smoking Status: Current every day smoker Does the pt drink ETOH?: Yes Does the pt have substance abuse?: No - Immunizations Immunizations: TDAP >10years/unknown - POLST Patient has POLST: No PD ED PE NORMAL - Vitals Vital signs reviewed: Yes - General General: Alert and oriented X 3 - HEENT HEENT: Atraumatic, PERRL, EOMI, Moist mucous membranes, Pharynx benign, Other (Left neck abscess 4 x 4 cm with fluctuance and overlying erythema. Posterior to sternocleidomastoid muscle) Results - Vitals Vitals: Vital Signs - 24 hr 07/02/20 08:45 Temperature 35.9 C L Heart Rate 79 Respiratory 16 Rate Blood Pressure 199/107 H O2 Saturation 97 Oxygen O2 Source Room air Procedures - Abscess I&D (location) Neck left Preparation: Confirmed with ultrasound (No vascular structures nearby), Betadine, Lidocaine 1% Incision: Incised with scalpel, Purulent drainage, Loculations broken, Irrigated, Packed Other: Pt tolerated well, Dressing applied, Antibiotic prescribed PD MEDICAL DECISION MAKING - ED course ED course: 50-year-old man presented for neck abscess with overlying cellulitis. Drained and packed without complications. Antibiotics sent. Strict return precautions given. Education given. Patient will follow up with his primary doctor this Friday. Departure - Departure Disposition: Home, Self Care Clinical Impression: Abscess Condition: Good Instructions: ED Abscess IandD Prescriptions: Clindamycin [Cleocin] 300 mg PO Q6H 7 Days #42 capsule Comments: You have been seen for a left neck abscess that I drained without issues. Packing was placed and it should be removed when your primary doctor sees you on Friday. Return to the ED for any new or worsening symptoms.Take your antibiotics as prescribed.
[2020-07-02 10:32] VITALS: BP 155/99
== END 2020-07-02 10:38 | disposition home or self-care (01) ==
LOC: ED 08:42
DX: L02.11 Cutaneous abscess of neck (principal); L03.221 Cellulitis of neck; E11.9 Type 2 diabetes mellitus without complications; Z79.4 Long term (current) use of insulin; F17.200 Nicotine dependence, unspecified, uncomplicated
CPT/HCPCS: 10061; 99282; 99283; A9270

== ENCOUNTER 2020-07-05 07:55 | Outpatient (CLI) | payer MEDICAID ==
[2020-07-05 13:52] LABS: THYROID STIMULATING HORMONE 4.89 uIU/mL (0.34-5.60)
[2020-07-05 13:54] LABS: FREE T3 3.97 pg/mL (2.5-3.9)
[2020-07-05 13:55] LABS: FREE T4 (FREE THYROXINE) 0.81 ng/dL (0.58-1.64)
== END 2020-07-05 23:59 | disposition home or self-care (01) ==
LOC: LAB.WCP 07:55
PROVIDERS: ATTEND Family Medicine
DX: K59.09 Other constipation (principal)
CPT/HCPCS: 36415; 84439; 84443; 84481

== ENCOUNTER 2020-10-13 09:18 | Outpatient (CLI) | payer MEDICAID ==
[2020-10-13 12:15] LABS: BASOPHILS # (AUTO) 0.1 10^3/uL (0.0-0.1); BASOPHILS % (AUTO) 1.2 %; EOSINOPHILS # (AUTO) 0.1 10^3/uL (0.0-0.7); EOSINOPHILS % (AUTO) 0.7 %; HCT - HEMATOCRIT 51.6 % (42.0-52.0); LYMPHOCYTES # (AUTO) 1.6 10^3/uL (1.5-3.5); LYMPHOCYTES % (AUTO) 23.1 %; MEAN CORPUSCULAR HEMOGLOBIN 30.2 pg (27.0-31.0); MEAN CORPUSCULAR HGB CONC 32.9 g/dL (32.0-36.0); MEAN CORPUSCULAR VOLUME 91.8 fL (80.0-94.0); MEAN PLATELET VOLUME 10.3 fL (7.4-11.4); MONOCYTES # (AUTO) 0.6 10^3/uL (0.0-1.0); MONOCYTES % (AUTO) 8.7 %; NEUTROPHILS # (AUTO) 4.5 10^3/uL (1.5-6.6); NEUTROPHILS % (AUTO) 65.7 %; PLT - PLATELET COUNT 280 10^3/uL (130-450); RED BLOOD COUNT 5.62 10^6/uL (4.70-6.10); RED CELL DISTRIBUTION WIDTH 13.2 % (12.0-15.0); WHITE BLOOD COUNT 6.9 x10^3/uL (4.8-10.8)
[2020-10-13 12:27] LABS: ESTIMATED AVERAGE GLUCOSE 246 mg/dL (70-100); HEMOGLOBIN A1c% 10.2 % (4.27-6.07)
[2020-10-13 13:07] LABS: ALBUMIN 4.7 g/dL (3.2-5.5); ALBUMIN/GLOBULIN RATIO 1.7 (1.0-2.2); ALKALINE PHOSPHATASE 89 IU/L (42-121); ALT ALANINE AMINOTRANSFERASE 27 IU/L (10-60); AST ASPARTATE AMINOTRANSFERASE 17 IU/L (10-42); BILIRUBIN,TOTAL 0.7 mg/dL (0.2-1.0); BUN - BLOOD UREA NITROGEN 22 mg/dL (6-20); CALCIUM 10.1 mg/dL (8.5-10.3); CARBON DIOXIDE - CO2 23 mmol/L (21-32); CHLORIDE 100 mmol/L (101-111); CHOL/HDL RATIO 8.2 (<5.0); CHOLESTEROL 305 mg/dL; GFR - MDRD 78 (>89); GLUCOSE 244 mg/dL (70-100); HDL CHOLESTEROL 37 mg/dL; LDL CHOLESTEROL,CALCULATED 224 mg/dL; LDL/HDL RATIO 6.1 (<3.6); POTASSIUM 4.4 mmol/L (3.5-5.0); SODIUM 133 mmol/L (135-145); TOTAL PROTEIN 7.5 g/dL (6.7-8.2); TRIGLYCERIDES 220 mg/dL; VLDL CHOLESTEROL 44 mg/dL
[2020-10-13 13:08] LABS: THYROID STIMULATING HORMONE 6.05 uIU/mL (0.34-5.60)
[2020-10-13 13:25] LABS: CREATININE,URINE 112.1 mg/dL; MICROALBUM/CREATININE RATIO,UR 120.4 ug/mg (<30.0); MICROALBUMIN,URINE 13.5 mg/dL (0-300.0)
[2020-10-13 13:47] LABS: FREE T4 (FREE THYROXINE) 0.83 ng/dL (0.58-1.64)
== END 2020-10-13 23:59 | disposition home or self-care (01) ==
LOC: LAB.WCP 09:18
PROVIDERS: ATTEND Family Medicine
DX: E11.8 Type 2 diabetes mellitus with unspecified complications (principal); E66.9 Obesity, unspecified; I10 Essential (primary) hypertension; E78.5 Hyperlipidemia, unspecified; F32.9 Major depressive disorder, single episode, unspecified
CPT/HCPCS: 36415; 80053; 80061; 82043; 82570; 83036; 83721; 84439; 84443; 85025

== ENCOUNTER 2021-04-02 08:00 | Outpatient (CLI) | payer MEDICAID ==
[2021-04-02 18:11] LABS: BASOPHILS # (AUTO) 0.1 10^3/uL (0.0-0.1); BASOPHILS % (AUTO) 1.2 %; EOSINOPHILS % (AUTO) 0.4 %; HCT - HEMATOCRIT 54.5 % (42.0-52.0); HGB - HEMOGLOBIN 17.7 g/dL (14.0-18.0); LYMPHOCYTES # (AUTO) 1.5 10^3/uL (1.5-3.5); LYMPHOCYTES % (AUTO) 19.5 %; MEAN CORPUSCULAR HEMOGLOBIN 29.9 pg (27.0-31.0); MEAN CORPUSCULAR HGB CONC 32.5 g/dL (32.0-36.0); MEAN CORPUSCULAR VOLUME 92.2 fL (80.0-94.0); MEAN PLATELET VOLUME 10.6 fL (7.4-11.4); MONOCYTES # (AUTO) 0.7 10^3/uL (0.0-1.0); MONOCYTES % (AUTO) 9.5 %; NEUTROPHILS # (AUTO) 5.3 10^3/uL (1.5-6.6); PLT - PLATELET COUNT 272 10^3/uL (130-450); RED BLOOD COUNT 5.91 10^6/uL (4.70-6.10); RED CELL DISTRIBUTION WIDTH 13.5 % (12.0-15.0); WHITE BLOOD COUNT 7.7 x10^3/uL (4.8-10.8)
[2021-04-02 18:41] LABS: ALBUMIN 4.4 g/dL (3.2-5.5); ALBUMIN/GLOBULIN RATIO 1.4 (1.0-2.2); ALKALINE PHOSPHATASE 103 IU/L (42-121); ALT ALANINE AMINOTRANSFERASE 24 IU/L (10-60); AST ASPARTATE AMINOTRANSFERASE 18 IU/L (10-42); BILIRUBIN,TOTAL 0.9 mg/dL (0.2-1.0); BUN - BLOOD UREA NITROGEN 18 mg/dL (6-20); CARBON DIOXIDE - CO2 24 mmol/L (21-32); CHLORIDE 98 mmol/L (101-111); CHOL/HDL RATIO 10.4 (<5.0); CHOLESTEROL 354 mg/dL; CREATININE 0.8 mg/dL (0.6-1.2); GFR - MDRD 101 (>89); GLUCOSE 320 mg/dL (70-100); HDL CHOLESTEROL 34 mg/dL; LDL CHOLESTEROL,CALCULATED 255 mg/dL; LDL/HDL RATIO 7.5 (<3.6); POTASSIUM 4.7 mmol/L (3.5-5.0); SODIUM 134 mmol/L (135-145); TOTAL PROTEIN 7.5 g/dL (6.7-8.2); TRIGLYCERIDES 327 mg/dL; VLDL CHOLESTEROL 65 mg/dL
[2021-04-02 18:43] LABS: CREATININE,URINE 88.5 mg/dL; MICROALBUM/CREATININE RATIO,UR 311.9 ug/mg (<30.0); MICROALBUMIN,URINE 27.6 mg/dL (0-300.0)
[2021-04-02 18:46] LABS: THYROID STIMULATING HORMONE 4.88 uIU/mL (0.34-5.60)
[2021-04-02 20:07] LABS: ESTIMATED AVERAGE GLUCOSE 289 mg/dL (70-100); HEMOGLOBIN A1c% 11.7 % (4.27-6.07)
== END 2021-04-02 23:59 | disposition home or self-care (01) ==
LOC: LAB.WCP 08:00
PROVIDERS: ATTEND Family Medicine
DX: E11.8 Type 2 diabetes mellitus with unspecified complications (principal); E66.9 Obesity, unspecified; I10 Essential (primary) hypertension
CPT/HCPCS: 36415; 80053; 80061; 82043; 82570; 83036; 83721; 84443; 85025

== ENCOUNTER 2021-07-25 08:00 | Outpatient (CLI) | payer MEDICAID ==
[2021-07-25 18:54] LABS: CREATININE 0.9 mg/dL (0.6-1.2); POTASSIUM 4.4 mmol/L (3.5-5.0)
[2021-07-25 20:22] LABS: ESTIMATED AVERAGE GLUCOSE 280 mg/dL (70-100); HEMOGLOBIN A1c% 11.4 % (4.27-6.07)
== END 2021-07-25 23:59 | disposition home or self-care (01) ==
LOC: LAB.WCP 08:00
PROVIDERS: ATTEND Family Medicine
DX: E11.8 Type 2 diabetes mellitus with unspecified complications (principal)
CPT/HCPCS: 36415; 80048; 83036

== ENCOUNTER 2022-01-21 09:25 | Outpatient (CLI) | payer MEDICAID ==
[2022-01-21 12:02] LABS: BASOPHILS # (AUTO) 0.1 10^3/uL (0.0-0.1); BASOPHILS % (AUTO) 0.8 %; EOSINOPHILS % (AUTO) 0.3 %; HCT - HEMATOCRIT 51.4 % (42.0-52.0); HGB - HEMOGLOBIN 17.4 g/dL (14.0-18.0); LYMPHOCYTES # (AUTO) 1.1 10^3/uL (1.5-3.5); LYMPHOCYTES % (AUTO) 19.2 %; MEAN CORPUSCULAR HEMOGLOBIN 29.8 pg (27.0-31.0); MEAN CORPUSCULAR HGB CONC 33.9 g/dL (32.0-36.0); MEAN CORPUSCULAR VOLUME 88.2 fL (80.0-94.0); MONOCYTES # (AUTO) 0.7 10^3/uL (0.0-1.0); MONOCYTES % (AUTO) 11.1 %; NEUTROPHILS % (AUTO) 68.1 %; PLT - PLATELET COUNT 217 10^3/uL (130-450); RED BLOOD COUNT 5.83 10^6/uL (4.70-6.10); RED CELL DISTRIBUTION WIDTH 13.3 % (12.0-15.0); WHITE BLOOD COUNT 5.9 x10^3/uL (4.8-10.8)
[2022-01-21 12:31] LABS: ALBUMIN 4.8 g/dL (3.2-5.5); ALBUMIN/GLOBULIN RATIO 1.8 (1.0-2.2); ALKALINE PHOSPHATASE 80 IU/L (42-121); ALT ALANINE AMINOTRANSFERASE 27 IU/L (10-60); AST ASPARTATE AMINOTRANSFERASE 19 IU/L (10-42); BILIRUBIN,TOTAL 0.7 mg/dL (0.2-1.0); BUN - BLOOD UREA NITROGEN 14 mg/dL (6-20); CALCIUM 10.5 mg/dL (8.5-10.3); CARBON DIOXIDE - CO2 25 mmol/L (21-32); CHLORIDE 102 mmol/L (101-111); CHOL/HDL RATIO 7.2 (<5.0); CHOLESTEROL 295 mg/dL; GFR - MDRD 78 (>89); GLUCOSE 260 mg/dL (70-100); HDL CHOLESTEROL 41 mg/dL; LDL CHOLESTEROL,CALCULATED 230 mg/dL; LDL/HDL RATIO 5.6 (<3.6); POTASSIUM 4.2 mmol/L (3.5-5.0); SODIUM 136 mmol/L (135-145); TOTAL PROTEIN 7.5 g/dL (6.7-8.2); TRIGLYCERIDES 122 mg/dL; VLDL CHOLESTEROL 24 mg/dL
[2022-01-21 12:33] LABS: THYROID STIMULATING HORMONE 8.26 uIU/mL (0.34-5.60)
[2022-01-21 13:23] LABS: MICROALBUM/CREATININE RATIO,UR 583.3 ug/mg (<30.0)
[2022-01-21 13:54] LABS: FREE T4 (FREE THYROXINE) 0.92 ng/dL (0.58-1.64)
[2022-01-21 15:32] LABS: ESTIMATED AVERAGE GLUCOSE 243 mg/dL (70-100); HEMOGLOBIN A1c% 10.1 % (4.27-6.07)
== END 2022-01-21 09:26 | disposition home or self-care (01) ==
LOC: LAB.N 09:25
PROVIDERS: ATTEND Family Medicine
DX: E11.8 Type 2 diabetes mellitus with unspecified complications (principal); E78.5 Hyperlipidemia, unspecified; F17.200 Nicotine dependence, unspecified, uncomplicated; E66.9 Obesity, unspecified; F41.9 Anxiety disorder, unspecified; Z91.19 Patient's noncompliance with other medical treatment and regimen; F32.A Depression, unspecified
CPT/HCPCS: 36415; 80050; 80061; 82043; 82570; 83036; 83721; 84439

== ENCOUNTER 2022-04-22 09:39 | Outpatient (CLI) | payer MEDICAID ==
[2022-04-22 13:05] LABS: FREE T3 3.57 pg/mL (2.5-3.9)
[2022-04-22 13:06] LABS: CALCIUM 10.2 mg/dL (8.5-10.3); CREATININE 0.8 mg/dL (0.6-1.2); POTASSIUM 4.2 mmol/L (3.5-5.0); THYROID STIMULATING HORMONE 7.64 uIU/mL (0.34-5.60)
[2022-04-22 13:07] LABS: FREE T4 (FREE THYROXINE) 0.87 ng/dL (0.58-1.64)
[2022-04-22 13:46] LABS: ESTIMATED AVERAGE GLUCOSE 263 mg/dL (70-100); HEMOGLOBIN A1c% 10.8 % (4.27-6.07)
[2022-04-22 13:54] LABS: CREATININE,URINE 94.8 mg/dL; MICROALBUM/CREATININE RATIO,UR 602.3 ug/mg (<30.0); MICROALBUMIN,URINE 57.1 mg/dL (0-300.0)
== END 2022-04-22 09:40 | disposition home or self-care (01) ==
LOC: LAB.N 09:39
PROVIDERS: ATTEND Family Medicine
DX: E11.65 Type 2 diabetes mellitus with hyperglycemia (principal); F17.200 Nicotine dependence, unspecified, uncomplicated; E66.9 Obesity, unspecified; I10 Essential (primary) hypertension; F32.A Depression, unspecified; F41.9 Anxiety disorder, unspecified
CPT/HCPCS: 36415; 80048; 82043; 82570; 83036; 84439; 84443; 84481

== ENCOUNTER 2022-09-08 19:43 | Emergency (ER) | payer MEDICAID ==
[2022-09-08] MEDS ORDERED: ONDANSETRON 4 MG/2 ML VIAL IVP STA (20:01)
[2022-09-08] MEDS ORDERED: SODIUM CHLORIDE 0.9% 1,000 ML IV STA (20:01)
--- NOTE | 2022-09-08 20:02 | ED Physician Documentation ---
PD HPI ABD PAIN - Stated complaint Stated Complaint: V,NAUSEA - Chief complaint Chief Complaint: Abd Pain - History obtained from History obtained from: Patient - Additional information Additional information: 52-year-old gentleman with mental health issues and type 2 diabetes on insulin. Usually has a Dexcom but ran out and has not checked his blood sugar. Presents with chief complaint of vomiting today. He denies diarrhea. He had a normal bowel movement yesterday but not today, but that is not atypical for him. He has no abdominal pain. No sick contacts or recent travel. He had a shingles shot 2 days ago and wonders if that might be why he is vomiting. Denies fevers or chills or headaches or body aches though. He has a history of umbilical and inguinal hernia repair in the remote past. PD PAST MEDICAL HISTORY - Past Medical History Cardiovascular: Hypertension, High cholesterol, Other Respiratory: None Endocrine/Autoimmune: Type 2 diabetes GI: Other : Nocturia, Frequency HEENT: None Psych: Depression, Anxiety, Obsessive compulsive disorder Musculoskeletal: None Derm: None - Past Surgical History Past Surgical History: No General: Other - Present Medications Home Medications: Ambulatory Orders Medication Instructions Recorded Confirmed Metformin HCl 1,000 mg PO BID 08/31/13 09/08/22 Insulin Glargine [Lantus Solostar] 30 units SQ DAILY 05/25/20 09/08/22 Lisinopril [Zestril] 10 mg PO DAILY 05/25/20 09/08/22 Rosuvastatin Calcium [Crestor] 40 mg PO QPM 05/25/20 09/08/22 FLUoxetine [PROzac] 30 mg PO DAILY 04/19/21 09/08/22 Insulin Lispro [Humalog Kwikpen 10 unit SUBQ TID 04/19/21 09/08/22 U-100] - Allergies Allergies/Adverse Reactions: Allergies Allergy/AdvReac Type Severity Reaction Status Date / Time paroxetine [From Paxil] Allergy Unknown Verified 09/08/22 19:50 trifluoperazine Allergy Unknown Verified 09/08/22 19:50 [From Stelazine] chlorpermide Allergy Unknown Uncoded 09/08/22 19:50 - Social History Does the pt smoke?: Yes Smoking Status: Current every day smoker Does the pt drink ETOH?: Yes Does the pt have substance abuse?: No - Immunizations Immunizations: TDAP >10years/unknown - POLST Patient has POLST: No PD ED PE NORMAL - Vitals Vital signs reviewed: Yes - General General: Alert and oriented X 3, No acute distress - Cardiac Cardiac: Other (Mild resting tachycardia) - Respiratory Respiratory: No respiratory distress, Clear bilaterally - Abdomen Abdomen: Other (Absent bowel sounds initially, completely nontender though. No hernia masses.) - Back Back: No CVA TTP, No spinal TTP - Derm Derm: Normal color, Warm and dry - Extremities Extremities: No edema, No calf tenderness / cord - Neuro Neuro: Alert and oriented X 3, Normal speech Results - Vitals Vitals: Vital Signs - 24 hr 09/08/22 19:45 Temperature 36.3 C L Heart Rate 103 H Respiratory 16 Rate Blood Pressure 167/88 H O2 Saturation 96 Oxygen O2 Source Room air - Labs Labs: Laboratory Tests 09/08/22 09/08/22 20:16 20:16 WBC 11.5 H RBC 5.86 Hgb 17.8 Hct 52.2 H MCV 89.1 MCH 30.4 MCHC 34.1 RDW 12.9 Plt Count 250 MPV 10.0 Neut # (Auto) 10.8 H Lymph # (Auto) 0.3 L [place] # (Auto) 0.4 Eos # (Auto) 0.0 Baso # (Auto) 0.0 Absolute Nucleated RBC 0.00 Nucleated RBC % 0.0 Sodium 133 L Potassium 4.1 Chloride 105 Carbon Dioxide 19 L Anion Gap 9.0 BUN 17 Creatinine 0.7 Estimated GFR (MDRD) 118 Glucose 353 H Calcium 9.4 PD Medical Decision Making - ED course ED course: 52-year-old gentleman presents with vomiting alone. He has uncontrolled diabetes but looking at his labs there is no significant acidosis, or tachypnea CT suggest DKA. He felt better after IV fluids and Zofran here. On reexamination at 9:10 PM he is nontender, has passed p.o. challenge, and I was concerned at the initial physical that I did not hear much in the way of bowel sounds, but those have returned. He was given a dose of insulin here as well and encouraged to reinstate his Dexcom which he does have at home. Departure - Departure Disposition: Home, Self Care Clinical Impression: Uncontrolled diabetes mellitus Qualifiers: Diabetes mellitus type: type 2 Glycemic state: with hyperglycemia Qualified Code(s): E11.65 - Type 2 diabetes mellitus with hyperglycemia Vomiting Qualifiers: Vomiting type: unspecified Nausea presence: with nausea Qualified Code(s): R11.2 - Nausea with vomiting, unspecified Condition: Good Record reviewed to determine appropriate education?: Yes Instructions: ED Nausea Vomiting Comments: You were seen tonight for vomiting. Your blood sugar was 350 or so. Reinstate your Dexcom when you get home. We did give you 8 units of IV insulin here. Return in 24 hours if not better, anytime if worse. 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
[2022-09-08 20:23] LABS: BASOPHILS % (AUTO) 0.3 %; HCT - HEMATOCRIT 52.2 % (42.0-52.0); HGB - HEMOGLOBIN 17.8 g/dL (14.0-18.0); LYMPHOCYTES # (AUTO) 0.3 10^3/uL (1.5-3.5); LYMPHOCYTES % (AUTO) 2.4 %; MEAN CORPUSCULAR HEMOGLOBIN 30.4 pg (27.0-31.0); MEAN CORPUSCULAR HGB CONC 34.1 g/dL (32.0-36.0); MEAN CORPUSCULAR VOLUME 89.1 fL (80.0-94.0); MONOCYTES # (AUTO) 0.4 10^3/uL (0.0-1.0); MONOCYTES % (AUTO) 3.2 %; NEUTROPHILS # (AUTO) 10.8 10^3/uL (1.5-6.6); NEUTROPHILS % (AUTO) 93.8 %; PLT - PLATELET COUNT 250 10^3/uL (130-450); RED BLOOD COUNT 5.86 10^6/uL (4.70-6.10); RED CELL DISTRIBUTION WIDTH 12.9 % (12.0-15.0); WHITE BLOOD COUNT 11.5 x10^3/uL (4.8-10.8)
[2022-09-08 20:31] LABS: CALCIUM 9.4 mg/dL (8.5-10.3); CREATININE 0.7 mg/dL (0.6-1.2); POTASSIUM 4.1 mmol/L (3.5-5.0)
[2022-09-08] MEDS ORDERED: ONDANSETRON ODT 4 MG Prepack 2 TL STA (21:15)
[2022-09-08] MEDS ORDERED: INSULIN REGULAR HUMAN 100 UNIT/1 ML 10 ML MDV IVP STA (21:15)
[2022-09-08 21:34] VITALS: BP 132/75
== END 2022-09-08 21:25 | disposition home or self-care (01) ==
LOC: ED 19:43
DX: E11.65 Type 2 diabetes mellitus with hyperglycemia (principal); Z79.4 Long term (current) use of insulin
CPT/HCPCS: 36415; 80048; 85025; 96361; 96374; 99284; J1815

== ENCOUNTER 2022-09-18 13:02 | Outpatient (CLI) | payer MEDICAID ==
[2022-09-18 18:22] LABS: ALBUMIN 3.8 g/dL (3.2-5.5); ALBUMIN/GLOBULIN RATIO 1.2 (1.0-2.2); BILIRUBIN,TOTAL 0.4 mg/dL (0.2-1.0); CALCIUM 9.7 mg/dL (8.5-10.3); CREATININE 1.2 mg/dL (0.6-1.2); POTASSIUM 4.6 mmol/L (3.5-5.0); TOTAL PROTEIN 6.9 g/dL (6.7-8.2)
[2022-09-18 18:40] LABS: THYROID STIMULATING HORMONE 3.62 uIU/mL (0.34-5.60)
[2022-09-18 18:58] LABS: CREATININE,URINE 97.7 mg/dL; MICROALBUM/CREATININE RATIO,UR 503.6 ug/mg (<30.0); MICROALBUMIN,URINE 49.2 mg/dL (0-300.0)
[2022-09-18 20:45] LABS: ESTIMATED AVERAGE GLUCOSE 278 mg/dL (70-100); HEMOGLOBIN A1c% 11.3 % (4.27-6.07)
== END 2022-09-18 13:03 | disposition home or self-care (01) ==
LOC: LAB.N 13:02
PROVIDERS: ATTEND Nurse Practitioner Family
DX: E11.8 Type 2 diabetes mellitus with unspecified complications (principal); E03.9 Hypothyroidism, unspecified
CPT/HCPCS: 36415; 80053; 82043; 82570; 83036; 84443

== ENCOUNTER 2022-12-23 09:11 | Outpatient (CLI) | payer MEDICAID ==
[2022-12-23 12:06] LABS: BASOPHILS % (AUTO) 0.8 %; HCT - HEMATOCRIT 50.9 % (42.0-52.0); HGB - HEMOGLOBIN 16.8 g/dL (14.0-18.0); LYMPHOCYTES # (AUTO) 1.1 10^3/uL (1.5-3.5); LYMPHOCYTES % (AUTO) 21.2 %; MEAN CORPUSCULAR HEMOGLOBIN 28.9 pg (27.0-31.0); MEAN CORPUSCULAR VOLUME 87.6 fL (80.0-94.0); MEAN PLATELET VOLUME 10.3 fL (7.4-11.4); MONOCYTES # (AUTO) 0.5 10^3/uL (0.0-1.0); NEUTROPHILS # (AUTO) 3.4 10^3/uL (1.5-6.6); NEUTROPHILS % (AUTO) 68.8 %; PLT - PLATELET COUNT 241 10^3/uL (130-450); RED BLOOD COUNT 5.81 10^6/uL (4.70-6.10); RED CELL DISTRIBUTION WIDTH 13.4 % (12.0-15.0)
[2022-12-23 12:36] LABS: ALBUMIN 4.3 g/dL (3.2-5.5); ALBUMIN/GLOBULIN RATIO 1.4 (1.0-2.2); ALKALINE PHOSPHATASE 99 IU/L (42-121); ALT ALANINE AMINOTRANSFERASE 20 IU/L (10-60); AST ASPARTATE AMINOTRANSFERASE 15 IU/L (10-42); BILIRUBIN,TOTAL 0.5 mg/dL (0.2-1.0); BUN - BLOOD UREA NITROGEN 25 mg/dL (6-20); CALCIUM 9.9 mg/dL (8.5-10.3); CARBON DIOXIDE - CO2 24 mmol/L (21-32); CHLORIDE 105 mmol/L (101-111); CHOL/HDL RATIO 6.7 (<5.0); CHOLESTEROL 282 mg/dL; CREATININE 0.9 mg/dL (0.6-1.2); GFR - MDRD 88 (>89); GLUCOSE 263 mg/dL (70-100); HDL CHOLESTEROL 42 mg/dL; LDL CHOLESTEROL,CALCULATED 220 mg/dL; LDL/HDL RATIO 5.2 (<3.6); POTASSIUM 4.3 mmol/L (3.5-5.0); SODIUM 135 mmol/L (135-145); TOTAL PROTEIN 7.3 g/dL (6.7-8.2); TRIGLYCERIDES 102 mg/dL; VLDL CHOLESTEROL 20 mg/dL
[2022-12-23 12:55] LABS: ESTIMATED AVERAGE GLUCOSE 252 mg/dL (70-100); HEMOGLOBIN A1c% 10.4 % (4.27-6.07)
[2022-12-23 14:04] LABS: THYROID STIMULATING HORMONE 4.55 uIU/mL (0.34-5.60)
== END 2022-12-23 09:12 | disposition home or self-care (01) ==
LOC: LAB.N 09:11
PROVIDERS: ATTEND Family Medicine
DX: I10 Essential (primary) hypertension (principal); E03.9 Hypothyroidism, unspecified; E78.5 Hyperlipidemia, unspecified; F41.9 Anxiety disorder, unspecified; F32.A Depression, unspecified; E11.8 Type 2 diabetes mellitus with unspecified complications
CPT/HCPCS: 36415; 80050; 80061; 83036; 83721

== ENCOUNTER 2023-04-18 06:25 | Day surgery (SDC) | payer MEDICAID ==
[2023-04-18] MEDS ORDERED: PROPOFOL 500 MG/50 ML 500 MG/50 ML VIAL ONE (06:43)
[2023-04-18] MEDS ORDERED: LACTATED RINGERS 1,000 ML IV ONE ×2 (06:47→08:15)
--- NOTE | 2023-04-18 07:06 | ANESTHESIA ---
Pre-Anesthesia VS, & Labs - Diagnosis screening - Procedure colonoscopy Vital Signs: Temp Pulse Resp BP Pulse Ox O2 Flow Rate 36.2 C L 78 16 159/96 H 96 0 04/18/23 06:49 04/18/23 06:49 04/18/23 06:49 04/18/23 06:49 04/18/23 06:49 04/18/23 06:49 Height: 5 ft 9 in Weight (kg): 101 kg Body Mass Index: 32.8 BMI Classification: Obese - NPO >8 hours - Lab Results Current Lab Results: Laboratory Tests 04/18/23 06:54: POC Whole Bld Glucose 214 H Lab results reviewed: Yes Home Medications and Allergies Home Medications: Ambulatory Orders Empagliflozin [Jardiance] 10 mg PO DAILY 04/11/23 Levothyroxine [Synthroid] 25 mcg PO QDAC 04/11/23 Meloxicam 15 mg PO DAILY 04/11/23 hydroCHLOROthiazide [Hydrodiuril] 12.5 mg PO DAILY 04/11/23 Metformin HCl 1,000 mg PO BID 08/31/13 Insulin Glargine [Lantus Solostar] 40 units SQ DAILY 05/25/20 Lisinopril [Zestril] 10 mg PO DAILY 05/25/20 Rosuvastatin Calcium [Crestor] 40 mg PO QPM 05/25/20 FLUoxetine [PROzac] 30 mg PO DAILY 04/19/21 Insulin Lispro [Humalog Kwikpen U-100] 10 unit SUBQ TID 04/19/21 Empagliflozin [Jardiance] 10 mg PO DAILY 04/11/23 Levothyroxine [Synthroid] 25 mcg PO QDAC 04/11/23 Meloxicam 15 mg PO DAILY 04/11/23 hydroCHLOROthiazide [Hydrodiuril] 12.5 mg PO DAILY 04/11/23 Allergies/Adverse Reactions: Allergies Allergy/AdvReac Type Severity Reaction Status Date / Time paroxetine [From Paxil] Allergy Unknown Verified 09/08/22 19:50 trifluoperazine Allergy Unknown Verified 09/08/22 19:50 [From Stelazine] chlorpermide Allergy Unknown Uncoded 09/08/22 19:50 Anes History & Medical History - Anesthetic History Anesthesia Complications: reports: No previous complications Family history of Anesthesia Complications: Denies Family history of Malignant Hyperthermia: Denies - Medical History Cardiovascular: reports: Hypertension, High cholesterol Pulmonary: reports: None Gastrointestinal: reports: None Urinary: reports: Nocturia, Frequency Neuro: reports: None Musculoskeletal: reports: Osteoarthritis Endocrine/Autoimmune: reports: Type 2 diabetes, HyPOthyroidism Skin: reports: None Smoking Status: Current every day smoker Psychosocial: reports: No issues indicated - Surgical History General: reports: Other Exam General: Alert, Oriented x3, Cooperative Dental: Poor dentition Mouth Openin Fingerbreadth Neck Mobility: Normal Mallampati classification: II Thyromental Distance: 4-6 cm Respiratory: Lungs clear Cardiovascular: Regular rate Plan Anesthesia Type: General, MAC Consent for Procedure(s) Verified and Reviewed: Yes Code Status: Attempt Resuscitation ASA classification: 3-Severe systemic disease Is this case an emergency?: No
[2023-04-18] MEDS ORDERED: GLYCOPYRROLATE 1 MG/5 ML VIAL ONE (07:43)
[2023-04-18] MEDS ORDERED: MIDAZOLAM 2 MG/2 ML VIAL ONE (07:46)
[2023-04-18] MEDS ORDERED: PROPOFOL 200 MG/20 ML VIAL IVP ONE ×2 (08:04→09:08)
[2023-04-18 08:53] VITALS: BP 145/72; O2SAT 97
--- NOTE | 2023-04-18 10:49 | ANESTHESIA POST OP EVALUATION ---
Anesthesia Post Eval - Post Anesthesia Eval Vitals: Last Vital Signs Temp 36.5 C 04/18/23 08:15 Pulse 62 04/18/23 08:45 Resp 16 04/18/23 08:45 BP 145/72 H 04/18/23 08:45 Pulse Ox 97 04/18/23 08:45 O2 Flow Rate 0 04/18/23 06:49 CV Function Including HR & BP: Stable Pain Control: Satisfactory Nausea & Vomiting: Negative Mental Status: Baseline Respiratory Status: Airway Patent Hydration Status: Satisfactory Anesthesia Complications: None
== END 2023-04-18 06:26 | disposition home or self-care (01) ==
LOC: SDS 06:25
PROVIDERS: ATTEND Surgery
PROC: 0DBL8ZZ Excision of Transverse Colon, Via Natural or Artificial Opening Endoscopic (ICD-10-PCS; principal; 2023-04-18 07:30)
DX: Z12.11 Encounter for screening for malignant neoplasm of colon (principal); D12.3 Benign neoplasm of transverse colon; K57.30 Diverticulosis of large intestine without perforation or abscess without bleeding; Z79.84 Long term (current) use of oral hypoglycemic drugs; E11.9 Type 2 diabetes mellitus without complications; Z79.4 Long term (current) use of insulin; E66.9 Obesity, unspecified; Z68.32 Body mass index [BMI] 32.0-32.9, adult; F17.200 Nicotine dependence, unspecified, uncomplicated
CPT/HCPCS: 45380; J7120

== ENCOUNTER 2023-06-28 01:28 | Outpatient (CLI) | payer MEDICAID | END 2023-06-28 23:59 | disposition critical access hospital (66) | LOC: EMS 01:28 | DX: R07.81 Pleurodynia (principal) | CPT/HCPCS: A0425; A0427; A0999 ==

== ENCOUNTER 2023-06-28 01:47 | Emergency (ER) | payer MEDICAID ==
[2023-06-28 02:19] LABS: BASOPHILS % (AUTO) 0.5 %; EOSINOPHILS % (AUTO) 0.2 %; HCT - HEMATOCRIT 46.5 % (42.0-52.0); HGB - HEMOGLOBIN 15.3 g/dL (14.0-18.0); LYMPHOCYTES # (AUTO) 0.9 10^3/uL (1.5-3.5); LYMPHOCYTES % (AUTO) 14.9 %; MEAN CORPUSCULAR HEMOGLOBIN 29.9 pg (27.0-31.0); MEAN CORPUSCULAR HGB CONC 32.9 g/dL (32.0-36.0); MEAN PLATELET VOLUME 9.9 fL (7.4-11.4); MONOCYTES # (AUTO) 0.5 10^3/uL (0.0-1.0); MONOCYTES % (AUTO) 8.8 %; NEUTROPHILS # (AUTO) 4.4 10^3/uL (1.5-6.6); NEUTROPHILS % (AUTO) 75.3 %; PLT - PLATELET COUNT 234 10^3/uL (130-450); RED BLOOD COUNT 5.11 10^6/uL (4.70-6.10); RED CELL DISTRIBUTION WIDTH 12.6 % (12.0-15.0); WHITE BLOOD COUNT 5.9 x10^3/uL (4.8-10.8)
[2023-06-28 02:42] LABS: ALBUMIN 3.9 g/dL (3.2-5.5); ALBUMIN/GLOBULIN RATIO 1.6 (1.0-2.2); BILIRUBIN,TOTAL 0.3 mg/dL (0.2-1.0); CALCIUM 10.1 mg/dL (8.5-10.3); CREATININE 0.9 mg/dL (0.6-1.3); POTASSIUM 5.1 mmol/L (3.5-4.5); TOTAL PROTEIN 6.4 g/dL (6.4-8.9)
--- NOTE | 2023-06-28 05:06 | ED Physician Documentation ---
History of Present Illness - Stated complaint Stated Complaint: R SCAPULAR PX/CHEST PAIN - Chief complaint Chief Complaint: Cardiac - Additonal information Additional information: Patient 53-year-old male with past medical significant for hypertension, dyslipidemia, diabetes presenting to the emergency department with right sided chest pain. Brought in via EMS. Initially reports was having right-sided scapular pain 1 week ago. Pain subsequently became notable on the right anterior aspect of his chest which was worse with deep inspiration, laughing, coughing. Denies any shortness of breath, diaphoresis or similar episodes of pain in the past. Denies fever, chills, abdominal pain, nausea, vomiting, diarrhea, constipation. Review of Systems Constitutional: denies: Fever Eyes: denies: Loss of vision Ears: denies: Loss of hearing Nose: denies: Rhinorrhea / runny nose Throat: denies: Dental pain / toothache Cardiac: reports: Chest pain / pressure Respiratory: denies: Dyspnea GI: denies: Abdominal Pain : denies: Dysuria Skin: denies: Rash PD PAST MEDICAL HISTORY - Past Medical History Past Medical History: Yes Cardiovascular: Hypertension, High cholesterol Respiratory: None Neuro: None Endocrine/Autoimmune: Type 2 diabetes, HyPOthyroidism GI: None : Nocturia, Frequency HEENT: Chronic vision loss Psych: Depression, Anxiety, Obsessive compulsive disorder Musculoskeletal: Osteoarthritis Derm: None - Past Surgical History Past Surgical History: Yes General: Other - Present Medications Home Medications: Ambulatory Orders Medication Instructions Recorded Confirmed Metformin HCl 1,000 mg PO BID 08/31/13 06/28/23 Insulin Glargine [Lantus Solostar] 40 units SQ DAILY 05/25/20 06/28/23 Lisinopril [Zestril] 10 mg PO DAILY 05/25/20 06/28/23 Rosuvastatin Calcium [Crestor] 40 mg PO QPM 05/25/20 06/28/23 FLUoxetine [PROzac] 20 mg PO DAILY 04/19/21 06/28/23 Insulin Lispro [Humalog Kwikpen 10 unit SUBQ TID 04/19/21 06/28/23 U-100] Empagliflozin [Jardiance] 10 mg PO DAILY 04/11/23 06/28/23 Levothyroxine [Synthroid] 25 mcg PO QDAC 04/11/23 06/28/23 Meloxicam 15 mg PO DAILY 04/11/23 06/28/23 hydroCHLOROthiazide [Hydrodiuril] 12.5 mg PO DAILY 04/11/23 06/28/23 - Allergies Allergies/Adverse Reactions: Allergies Allergy/AdvReac Type Severity Reaction Status Date / Time paroxetine [From Paxil] Allergy Unknown Verified 06/28/23 02:08 trifluoperazine Allergy Unknown Verified 06/28/23 02:08 [From Stelazine] chlorpermide Allergy Unknown Uncoded 06/28/23 02:08 - Social History Does the pt smoke?: Yes Smoking Status: Current every day smoker Does the pt drink ETOH?: Yes Does the pt have substance abuse?: No - Immunizations Immunizations: TDAP >10years/unknown - POLST Patient has POLST: No PD ED PE NORMAL - Vitals Vital signs reviewed: Yes - General General: Alert and oriented X 3, No acute distress, Well developed/nourished, Other - HEENT HEENT: Atraumatic, PERRL, EOMI, Ears normal, Moist mucous membranes, Pharynx benign - Neck Neck: Supple, no meningeal sign, No bony TTP, No adenopathy, Thyroid normal, No JVD, No bruit - Cardiac Cardiac: RRR, No gallop, Strong equal pulses, Other (Right-sided chest wall tenderness to palpation.) - Respiratory Respiratory: No respiratory distress, Clear bilaterally - Abdomen Abdomen: Normal bowel sounds - Male Male : Deferred - Rectal Rectal: Deferred - Back Back: No CVA TTP - Derm Derm: Normal color - Extremities Extremities: No deformity - Neuro Neuro: Alert and oriented X 3, finishing manager 2-12 intact, No motor deficit, Normal speech Results - Vitals Vitals: Vital Signs - 24 hr 06/28/23 06/28/23 06/28/23 01:56 02:01 02:28 Temperature 36.6 C Heart Rate 81 73 Respiratory 16 17 Rate Blood Pressure 157/91 H 150/79 H Blood Pressure 153/91 H [Right] O2 Saturation 95 93 06/28/23 06/28/23 04:15 04:54 Temperature Heart Rate 69 71 Respiratory 23 21 Rate Blood Pressure 150/86 H 146/95 H Blood Pressure [Right] O2 Saturation 95 97 Oxygen O2 Source Room air - EKG (time done) 0202 EKG releavant findings:: EKG personally interpreted by author of this note. Relevant findings are: Sinus rhythm with rate 77 bpm. Normal axis. Normal SD, QRS, QTc intervals. No ST segment elevations. Some nonspecific ST abnormalities noted in the inferior leads. These are new in comparison to previous from 2018. - Labs Labs: Laboratory Tests 06/28/23 06/28/23 06/28/23 02:15 02:15 02:15 WBC 5.9 RBC 5.11 Hgb 15.3 Hct 46.5 MCV 91.0 MCH 29.9 MCHC 32.9 RDW 12.6 Plt Count 234 MPV 9.9 Neut # (Auto) 4.4 Lymph # (Auto) 0.9 L [place] # (Auto) 0.5 Eos # (Auto) 0.0 Baso # (Auto) 0.0 Absolute Nucleated RBC 0.00 Nucleated RBC % 0.0 D-Dimer < 200.0 L Sodium 136 Potassium 5.1 H Chloride 106 Carbon Dioxide 25 Anion Gap 5.0 L BUN 21 H Creatinine 0.9 Estimated GFR (MDRD) 88 L Glucose 320 H Calcium 10.1 Total Bilirubin 0.3 AST 12 ALT 22 Alkaline Phosphatase 104 Troponin I High Sens Total Protein 6.4 Albumin 3.9 Globulin 2.5 Albumin/Globulin Ratio 1.6 Lipase 34 06/28/23 06/28/23 02:15 04:09 WBC RBC Hgb Hct MCV MCH MCHC RDW Plt Count MPV Neut # (Auto) Lymph # (Auto) [place] # (Auto) Eos # (Auto) Baso # (Auto) Absolute Nucleated RBC Nucleated RBC % D-Dimer Sodium Potassium Chloride Carbon Dioxide Anion Gap BUN Creatinine Estimated GFR (MDRD) Glucose Calcium Total Bilirubin AST ALT Alkaline Phosphatase Troponin I High Sens 28.1 H* 28.2 H* Total Protein Albumin Globulin Albumin/Globulin Ratio Lipase PD Medical Decision Making - ED course Complexity details: reviewed results, re-evaluated patient, considered differential, d/w patient ED course: Patient 53-year-old male presenting to the emergency department with right-sided scapular and chest wall pain. Reported right scapular pain which subsequently became notable on the anterior aspect of his right chest over the course of the last week. No history of trauma. Pain exacerbated with physical activity. It was reproducible here in the emergency department. He was otherwise afebrile and hemodynamically stable on arrival to the emergency department. His EKG notably had some very nonspecific ST abnormalities in the inferior leads that appeared new from a previous EKG in 2018. He had a very minimal elevation in high-sensitivity troponin, 28.1 at 0 hours and 28.2 at 2 hours. His D-dimer was negative. He was noted to have some Hyperglycemia with blood sugar 320 but no indications diabetic ketoacidosis. He reported that he is only intermittently taking his medications and has not seen his primary care doctor in some time. Chest x-ray nonacute per my interpretation. Given the nature of his pain, its duration as well as the way that it is reproducible with physical activity and palpation I believe it is highly likely that the right-sided scapular and chest wall pain that he is experiencing is due to musculoskeletal injury. Nevertheless he does have multiple risk factors for coronary artery disease and has mild elevation in high-sensitivity troponin is similarly concerning. I had a detailed discussion with him about all findings. He was offered boarding/transfer in the emergency department as neededIn order to expedite cardiac risk stratification testing however he declined this stating that he did not wish to spend New Year's [place] in the emergency room. We discussed the importance of careful follow-up with primary care, return to the emergency department. He was also counseled on his smoking habit. In the interim he was provided medication for pain control for his right-sided chest wall pain as well as an incentive spirometer for use at home. Clear And explicit return precautions givenFor any new or worsening symptoms. Departure - Departure Disposition: 01 Home, Self Care Clinical Impression: Chest wall pain, Elevated troponin Instructions: ED Chest Pain Costochondritis Comments: Thank you for allowing us to care for you today [facility]. Today in the emergency department you were evaluated for any possible dangerous or life-threatening medical condition. As we discussed your testing here today did show a very small elevation in your troponin enzyme. This did not change significantly on repeat measurement however you do have multiple risk factors for coronary artery disease and it is important, again as we discussed, that you follow-up with your primary care doctor as soon as possible concerning this finding. The other tests in the emergency department were reassuring however you were also noted to have a significant elevation in glucose. It is important you take your diabetic medications also as prescribed. I have written a prescription for some medication you can take for pain control. Please use the incentive spirometer provided here in the emergency department regularly at home. I also like to strongly encourage you to work towards quitting smoking as this can have a profound positive impact open your overall health and wellbeing. It also decreases your risk for serious medical conditions such as stroke and heart attacks. Again if it anytime you have new or worsening symptoms please return to the emergency department immediately.
[2023-06-28] MEDS ORDERED: HYDROcod/ACET 5/325 Prepack 4 PO STA (05:14)
[2023-06-28] MEDS ORDERED: iohexoL-300 100 ML VIAL IVP ONE (06:55)
[2023-06-28] MEDS ORDERED: SODIUM CHLORIDE 0.9% 1,000 ML IV STA (07:52)
[2023-06-28 08:16] VITALS: BP 173/103; O2SAT 95
--- NOTE | 2023-06-28 08:25 | ED Physician Documentation ---
ED Addendum - Addendum Addendum: 06/28/23 08:23 53-year-old Dedrick Willis with history of diabetes presents to the emergency department with pain to the right chest wall that is in a specific area worse with inspiration and palpation. He has been having symptoms for about a week and has no recollection of an injury to the area. The patient is fairly sedentary does not work outside of the home. Today on workup we found the patient to have an elevated blood sugar, paratracheal lymph nodes enlarged on the right side and a fracture to the right fifth rib coinciding with some pleural thickening to the area. The patient presented to the emergency department in early hours of the morning with a spike in his pain when he rolled over in bed. He states that he is having periodically, if he moves wrong, a pain that ramps up to about 8 out of 10 and last as long as 60 seconds. Today on evaluation we did not find a life- threatening process but we do have unexplained findings including 1. A rib fracture without history of trauma recalled. 2. Paratracheal lymph node enlargement of uncertain etiology. 3. Troponin minimally elevated and stable. All 3 of these findings will require a follow-up for satisfactory explanation but do not place impingement patient and immediate life-threatening danger. In addition the patient is not currently using his insulin as he does not have a glucose monitor. He has previously been on continuous monitor which is no longer functional he has not been able to resolve the situation. 06/28/23 08:25
--- NOTE | 2023-06-28 09:07 | XRAY Report ---
PROCEDURE: Chest 2V INDICATIONS: cough TECHNIQUE: 2 views of the chest were acquired. COMPARISON: 10/14/2016 FINDINGS: Surgical changes and devices: None. Lungs and pleura: No dense consolidation. No pleural effusions. Slightly low lung volumes. There is also pleural thickening along the right lateral hemithorax. Mediastinum: Heart size is at the upper limit of normal. A prominent right paratracheal stripe is in cidentally noted. Bones and chest wall: Unremarkable. Nonacute appearing wedging of multiple thoracic vertebral bodies . IMPRESSION: Pleural thickening along the right hemithorax. Prominent right paratracheal stripe. Agree with prelim inary report. CT findings are separately dictated. Reviewed by: Chino Moya MD on 06/28/2023 9:06 AM PST Approved by: Chino Moya MD on 06/28/2023 9:06 AM [facility] Station ID: [id number]
--- NOTE | 2023-06-28 09:41 | CT Report ---
PROCEDURE: CHEST W INDICATIONS: Evaluation fullow up chest mass CONTRAST: 100 ML OMNI 300 TECHNIQUE: After the administration of intravenous contrast, a CT scan of the chest was performed. Images were recorded and evaluated at appropriate window settings. Reformats: axial MIP of the chest, coronal and sagittal. For radiation dose reduction, the following was used: automated exposure control, adjustme nt of mA and/or kV according to patient size. COMPARISON: Same-day radiograph, radiograph 10/14/2016, 06/28/2015 FINDINGS: Image quality: Diagnostic Lungs and pleura:Bibasilar atelectasis. No dense consolidation. No pleural effusions. no suspicious p ulmonary nodules requiring follow-up by Fleischner guidelines. As noted on radiography, an area of pleural thickening measuring 7 mm in thickness, confirming radiog raphic findings. Mediastinum, heart, and esophagus: Thickening of the right paratracheal stripe noted on radiography, likely corresponding to an enlarged right paratracheal lymph node measuring 1.5 cm in short axis. Oth er borderline enlarged mediastinal lymph nodes are seen. Normal heart size. Chest wall and thyroid: Right thyroid nodule measures about 1.4 cm. Gynecomastia. Upper abdomen: Hypervascular lesion at the liver dome, probably a hemangioma, though seems increasing conspicuity compared to 2015. No gross abnormality on these images of the upper abdomen, which is on ly partially seen. Bones: Subacute to chronic right rib fracture adjacent to the pleural thickening. Exaggerated thoraci c kyphosis. IMPRESSION: Healing right fifth rib fracture. Adjacent right lateral pleural thickening. Mediastinal enlarged lymph nodes, uncertain clinical significance. Hypervascular liver dome lesion partially seen, increasing conspicuity, but most consistent with fior ngioma on prior imaging. Follow-up is recommended for the above findings in 3months or sooner. This was marked in PACS as a re sult for follow-up. No significant discrepancy from a preliminary report. Reviewed by: Chino Moya MD on 06/28/2023 9:40 AM [facility] Approved by: Chino Moya MD on 06/28/2023 9:40 AM PST Station ID: [id number]
== END 2023-06-28 09:28 | disposition home or self-care (01) ==
LOC: EDUNIT# → ED 01:47
DX: R07.89 Other chest pain (principal); R79.89 Other specified abnormal findings of blood chemistry; R59.0 Localized enlarged lymph nodes; E11.65 Type 2 diabetes mellitus with hyperglycemia; Z79.4 Long term (current) use of insulin; R93.7 Abnormal findings on diagnostic imaging of other parts of musculoskeletal system; Z91.148 Patient's other noncompliance with medication regimen for other reason; F17.200 Nicotine dependence, unspecified, uncomplicated
CPT/HCPCS: 36415; 71046; 71260; 80053; 83690; 84443; 84484; 85025; 85379; 93005; 99284; Q9967

== ENCOUNTER 2023-07-04 11:29 | Outpatient (CLI) | payer MEDICAID ==
[2023-07-04 17:57] LABS: CALCIUM 9.8 mg/dL (8.5-10.3); CREATININE 0.7 mg/dL (0.6-1.3); POTASSIUM 4.5 mmol/L (3.5-4.5)
[2023-07-04 18:07] LABS: ESTIMATED AVERAGE GLUCOSE 269 mg/dL (70-100)
[2023-07-04 18:32] LABS: CREATININE,URINE 61.5 mg/dL
[2023-07-04 18:42] LABS: MICROALBUM/CREATININE RATIO,UR 1211.4 ug/mg (<30.0); MICROALBUMIN,URINE 74.5 mg/dL
== END 2023-07-04 11:30 | disposition home or self-care (01) ==
LOC: LAB.N 11:29
PROVIDERS: ATTEND Family Medicine
DX: E11.9 Type 2 diabetes mellitus without complications (principal); Z79.4 Long term (current) use of insulin
CPT/HCPCS: 36415; 80048; 82043; 82570; 83036

== ENCOUNTER 2023-09-20 09:04 | Emergency (ER) | payer MEDICAID ==
--- NOTE | 2023-09-20 10:47 | ED Physician Documentation ---
PD HPI CHEST PAIN - Stated complaint Stated Complaint: RT RIB PX - Chief complaint Chief Complaint: General - History obtained from History obtained from: Patient - History of Present Illness Timing - onset: Yesterday Timing - onset during: Other (during coughing paroxysm) Timing - details: Abrupt onset, Still present Quality: Sharp, Pain Location: Right chest Radiation: Back Improved by: Rest Worsened by: Exertion, Inspiration, Movement, Palpation, Position Associated symptoms: Cough. No: Shortness of air, Diaphoresis, Nausea, Vomiting, Feeling faint / dizzy, General Weakness, Palpitations Similar symptoms before: Diagnosis (rib fracture) Recently seen: Not recently seen - Additional information Additional information: Dedrick Willis is a 53-year-old diabetic male reports to me that he has been compliant with his medications over the past 4 days and he has had a coughing paroxysm that caused a recurrence of pain to his right chest wall that is severe enough that he has returned to the emergency department thinking he may have punctured a lung. He denies having difficulty breathing and states that he is able to get a full deep breath but has pain with any inspiration or movement. He has had a fractured right fifth rib previously without specific explanation. This occurred in May of this year. He has not used any of the pain medication he was prescribed. He presents today for pain control.He relates to me that he has a problem with his bedroom and accessing his bedroom with "junk "in the way. He indicates that he and his brother live in the house that previously belonged to their mother that they have inherited. They both have an issue with cleanliness and the brother apparently has enough of an issue that he has a pile of cigarette bouts up to his mattress. The patient indicates that getting in and out of the door to his bedroom is obstructed partly partially by debris and that as he gets in and out he has some pain to his chest wall squeezing by. Review of Systems Constitutional: denies: Fever Eyes: denies: Decreased vision Nose: denies: Congestion Throat: denies: Sore throat Cardiac: reports: Chest pain / pressure. denies: Palpitations Respiratory: reports: Cough. denies: Dyspnea GI: denies: Vomiting, Diarrhea : denies: Dysuria PD PAST MEDICAL HISTORY - Past Medical History Past Medical History: Yes Cardiovascular: Hypertension, High cholesterol Respiratory: None Neuro: None Endocrine/Autoimmune: Type 2 diabetes, HyPOthyroidism GI: None : Nocturia, Frequency HEENT: Chronic vision loss Psych: Depression, Anxiety, Obsessive compulsive disorder Musculoskeletal: Osteoarthritis Derm: None - Past Surgical History Past Surgical History: Yes General: Other - Present Medications Home Medications: Ambulatory Orders Medication Instructions Recorded Confirmed Metformin HCl 1,000 mg PO BID 08/31/13 09/20/23 Insulin Glargine [Lantus Solostar] 40 units SQ DAILY 05/25/20 09/20/23 Lisinopril [Zestril] 10 mg PO DAILY 05/25/20 09/20/23 Rosuvastatin Calcium [Crestor] 40 mg PO QPM 05/25/20 09/20/23 FLUoxetine [PROzac] 20 mg PO DAILY 04/19/21 09/20/23 Insulin Lispro [Humalog Kwikpen 10 unit SUBQ TID 04/19/21 09/20/23 U-100] Empagliflozin [Jardiance] 10 mg PO DAILY 04/11/23 09/20/23 Levothyroxine [Synthroid] 25 mcg PO QDAC 04/11/23 09/20/23 Meloxicam 15 mg PO DAILY 04/11/23 09/20/23 hydroCHLOROthiazide [Hydrodiuril] 12.5 mg PO DAILY 04/11/23 09/20/23 Blood Sugar Diagnostic [Glucometer 1 each MC BID #100 strip 06/28/23 09/20/23 Strips] Blood-Glucose Meter [Glucometer] 1 each MC BID #1 each 06/28/23 09/20/23 - Allergies Allergies/Adverse Reactions: Allergies Allergy/AdvReac Type Severity Reaction Status Date / Time paroxetine [From Paxil] Allergy Unknown Verified 09/20/23 09:21 trifluoperazine Allergy Unknown Verified 09/20/23 09:21 [From Stelazine] chlorpermide Allergy Unknown Uncoded 09/20/23 09:21 - Social History Does the pt smoke?: Yes Smoking Status: Current every day smoker Does the pt drink ETOH?: Yes Does the pt have substance abuse?: No - Immunizations Immunizations: TDAP >10years/unknown - POLST Patient has POLST: No PD ED PE NORMAL - Vitals Vital signs reviewed: Yes (hypertension) - General General: Alert and oriented X 3, No acute distress, Well developed/nourished, Other (bearded male in no distress) - HEENT HEENT: Atraumatic, PERRL, EOMI - Neck Neck: Supple, no meningeal sign, No bony TTP - Cardiac Cardiac: RRR, No murmur - Respiratory Respiratory: No respiratory distress, Clear bilaterally, Other (specific area of tenderness to the right anterolateral chest wall. No crepitance) - Abdomen Abdomen: Soft, Non tender - Back Back: No CVA TTP, No spinal TTP - Derm Derm: Normal color, Warm and dry, No rash - Extremities Extremities: No deformity, No edema - Neuro Neuro: Alert and oriented X 3, dye room helper 2-12 intact, No motor deficit, No sensory deficit, Normal speech Eye Opening: Spontaneous Motor: Obeys Commands Verbal: Oriented GCS Score: 15 - Psych Psych: Normal mood, Normal affect Results - Vitals Vitals: Vital Signs - 24 hr 09/20/23 09/20/23 09:17 12:01 Temperature 36.7 C Heart Rate 70 75 Respiratory 20 20 Rate Blood Pressure 176/96 H 137/88 H O2 Saturation 98 100 Oxygen O2 Source Room air - Rads (name of study) chest with ribs Relevant Findings:: Prelim report reviewed (Impression: No displaced rib fracture or pneumothorax.), EMP independent interpretation of test PD Medical Decision Making - ED course Complexity details: reviewed old records, reviewed results, re-evaluated patient, considered differential, d/w patient ED course: 53-year-old Dedrick Willis had a fracture to the right fifth rib in May of last year and he has had a hard cough and has reignited the pain in his anterior lateral right chest. He has no evidence of fracture or hemopneumothorax today on plain films. He is given a dose of Toradol here in the emergency department. He is encouraged to use the narcotic pain reliever he has at home for treatment of this pain as needed. He did indicate to me that he has significant issue with clutter in his home resulting in him having to squeeze his way through the door to his bedroom because of the clutter outside of the door and the inability to open the door completely. He feels this is contributing to his pain as well. I had the mental health social worker come to discuss with this with the patient and she was able to provide him with some resources but I believe the clean up will be up to the patient and his brother. Departure - Departure Disposition: 01 Home, Self Care Clinical Impression: Strain of chest wall Qualifiers: Encounter type: initial encounter Qualified Code(s): S29.011A - Strain of muscle and tendon of front wall of thorax, initial encounter Condition: Stable Instructions: ED Contusion Chest Wall Follow-Up: Dedrick Multani MD [Primary Care Provider] - Comments: Dedrick, today we did not find any evidence of a broken rib or air between the lung and the chest wall. I am expecting this episode of chest wall pain to resolve much faster than the prior episode where there was a fracture to the rib. You have pain medication for use for this at home and my recommendation is to take this if you are having pain that you cannot tolerate. If you get constipated from the pain medication takes milk of magnesia. We have provided you with some resources to help you and your brother clean up your house. I highly recommend that you and your brother get together to clean up the area so that you will not have to squeeze yourself in and out of your bedroom door. Forms: PCP List Discharge Date/Time: 09/20/23 12:01
[2023-09-20] MEDS: KETOROLAC 30 MG/ML VIAL IM STA (10:49)
[2023-09-20 12:06] VITALS: BP 137/88; O2SAT 100
--- NOTE | 2023-09-20 16:16 | XRAY Report ---
PROCEDURE: Ribs w/PA Chest 3+V RT INDICATIONS: rib pain TECHNIQUE: 2 views of the ribs were acquired, along with a single view chest. COMPARISON: None. FINDINGS: Surgical changes and devices: None. Bones and chest wall: No fractures or dislocations. No suspicious bony lesions. Overlying soft tis sues appear unremarkable. Lungs and pleura: No pleural effusions or pneumothorax. Lungs appear clear. Mediastinum: Mediastinal contours appear normal. Heart size is normal. IMPRESSION: No displaced rib fracture or pneumothorax. Reviewed by: Pako Glover MD on 09/20/2023 9:25 AM BRIANNA Approved by: Pako Glover MD on 09/20/2023 9:25 AM BRIANNA Station ID: [id number]
== END 2023-09-20 12:01 | disposition home or self-care (01) ==
LOC: ED 09:04
DX: S29.011A Strain of muscle and tendon of front wall of thorax, initial encounter (principal); X58.XXXA Exposure to other specified factors, initial encounter; Y93.89 Activity, other specified; Y92.009 Unspecified place in unspecified non-institutional (private) residence as the place of occurrence of the external cause; F17.200 Nicotine dependence, unspecified, uncomplicated; Z59.89 Other problems related to housing and economic circumstances
CPT/HCPCS: 96372; 99283; 99284

== ENCOUNTER 2023-09-24 15:02 | Outpatient (CLI) | payer MEDICAID ==
--- NOTE | 2023-09-25 09:08 | CT Report ---
PROCEDURE: Chest WO INDICATIONS: HEAVY SMOKER TECHNIQUE: A CT scan of the chest was performed. Intravenous contrast media was not administered. Images were re corded and evaluated at appropriate window settings. Reformats: axial MIP of the chest, coronal and s agittal. For radiation dose reduction, the following was used: automated exposure control, adjustment of mA and/or kV according to patient size. COMPARISON: CT chest, 06/28/2023. FINDINGS: Image quality: Diagnostic. Chest wall and lower neck: No thyroid nodule which requires sonographic follow up. No axillary or sup raclavicular adenopathy by size. Lungs and pleura: There is a minimally calcified nodule in the right upper lobe, compatible with an o ld granuloma. No consolidation. No pleural effusions. No pneumothorax. No suspicious pulmonary nodul es which require follow up. Mediastinum: Heart size is normal. No pericardial effusion. No large vessel abnormality. There is med iastinal adenopathy by size criteria. For example, there is a 1.5 x 2.7 cm right paratracheal lymph node. A 1.0 x 1.4 cm subcarinal lymph node is noted. Bones: No aggressive osseous abnormality. Non-acute right fourth, fifth, sixth and seventh rib fractu res are noted. Mild to moderate spondylitic changes in lumbar spine. Kyphosis. Upper Abdomen: Unremarkable. IMPRESSION: 1. No acute cardiopulmonary process. 2. A calcified granuloma in the right upper lobe. 3. Mild mediastinal lymphadenopathy, unchanged since the last exam. 4. Multiple right rib fractures. Reviewed by: Lyn Jerez MD on 09/25/2023 9:07 AM PDT Approved by: Lyn Jerez MD on 09/25/2023 9:07 AM PDT Station ID: [id number]
== END 2023-09-24 15:03 | disposition home or self-care (01) ==
LOC: DI 15:02
PROVIDERS: ATTEND Nurse Practitioner Family
DX: J84.10 Pulmonary fibrosis, unspecified (principal); S22.41XD Multiple fractures of ribs, right side, subsequent encounter for fracture with routine healing; R59.0 Localized enlarged lymph nodes

== ENCOUNTER 2023-10-09 08:45 | Outpatient (CLI) | payer MEDICAID ==
[2023-10-09 12:21] LABS: CALCIUM 10.5 mg/dL (8.5-10.3); CREATININE 0.8 mg/dL (0.6-1.3); POTASSIUM 4.2 mmol/L (3.5-4.5)
[2023-10-09 12:25] LABS: ESTIMATED AVERAGE GLUCOSE 280 mg/dL (70-100); HEMOGLOBIN A1c% 11.4 % (4.27-6.07)
[2023-10-09 12:36] LABS: CREATININE,URINE 53.6 mg/dL
[2023-10-09 12:47] LABS: MICROALBUM/CREATININE RATIO,UR 1173.5 ug/mg (<30.0); MICROALBUMIN,URINE 62.9 mg/dL
== END 2023-10-09 08:46 | disposition home or self-care (01) ==
LOC: LAB.N 08:45
PROVIDERS: ATTEND Family Medicine
DX: E11.65 Type 2 diabetes mellitus with hyperglycemia (principal); F33.1 Major depressive disorder, recurrent, moderate
CPT/HCPCS: 36415; 80048; 82043; 82570; 83036